=== PATIENT | male | born 1965 | race Caucasian/White ===

== ENCOUNTER 2019-07-18 08:40 | Outpatient (CLI) | payer MEDICARE, SELFPAY ==
[2019-07-18 09:01] LABS: Hemoglobin 14.8 g/dL (14.0-18.0); Mean Corpuscular HGB Conc 32.2 g/dL (32.0-36.0); Mean Corpuscular Hemoglobin 31.8 pg (27.0-31.0); Mean Corpuscular Volume 98.9 fL (78.0-102.0); Mean Platelet Volume 10.2 fl (8.7-11.0); Platelet Count Result 400 K/mm3 (150-420); Red Blood Count 4.65 M/mm3 (4.70-6.10); Red Cell Distribution Width 14.5 % (11.6-14.4); White Blood Count 11.5 K/mm3 (4.8-10.8)
[2019-07-18 09:46] LABS: Albumin Level 3.6 g/dL (3.4-5.0); Anion Gap 14.5 mmol/L (7-16); Blood Urea Nitrogen 25 mg/dL (7-18); Calcium 9.9 mg/dL (8.5-10.1); Carbon Dioxide 28 mmol/L (21-32); Chloride 108 mmol/L (98-108); Estimated Glomerular Filt Rate 44; Glucose 87 mg/dL (70-99); Osmolality Calculated 305 mOsm/kg (285-295); Phosphorus 4.3 mg/dL (2.6-4.7); Potassium 4.5 mmol/L (3.5-5.1); Sodium 146 mmol/L (136-145)
[2019-07-22 12:06] LABS: Tacrolimus Prograf 3.6 mcg/L
== END 2019-07-18 08:41 | disposition home or self-care (01) ==
DX: Z94.0 Kidney transplant status (principal); E78.49 Other hyperlipidemia
CPT/HCPCS: 36415; 80069; 80197; 85027

== ENCOUNTER 2019-11-05 08:37 | Outpatient (CLI) | payer MEDICARE, SELFPAY ==
[2019-11-05 08:52] LABS: Basophils Absolute Auto 0.07 K/mm3 (0.00-0.10); Basophils Percent Auto 0.8 % (0.0-1.0); Eosinophils Absolute Auto 0.22 K/mm3 (0.02-0.50); Eosinophils Percent Auto 2.4 % (1.0-6.0); Hematocrit 47.7 % (40.0-54.0); Hemoglobin 15.5 g/dL (14.0-18.0); Immature Granulocyte Absolute 0.03 K/mm3 (0.00-0.00); Immature Granulocyte Percent A 0.3 % (0.0-0.0); Lymphocytes Absolute Auto 3.01 K/mm3 (1.10-4.50); Lymphocytes Percent Auto 32.6 % (18.0-42.0); Mean Corpuscular HGB Conc 32.5 g/dL (32.0-36.0); Mean Corpuscular Hemoglobin 31.8 pg (27.0-31.0); Mean Corpuscular Volume 97.7 fL (78.0-102.0); Mean Platelet Volume 10.2 fl (8.7-11.0); Monocytes Absolute Auto 1.23 K/mm3 (0.10-0.90); Monocytes Percent Auto 13.3 % (2.0-11.0); Neutrophils Absolute Auto 4.7 K/mm3 (1.7-7.2); Neutrophils Percent Auto 50.6 % (50.0-70.0); Platelet Count Result 361 K/mm3 (150-420); Red Blood Count 4.88 M/mm3 (4.70-6.10); Red Cell Distribution Width 13.7 % (11.6-14.4); White Blood Count 9.2 K/mm3 (4.8-10.8)
[2019-11-05 09:06] LABS: Hemoglobin A1C 5.6 % (<5.7)
[2019-11-05 09:45] LABS: Alanine Aminotransferase 15 U/L (16-63); Albumin Level 3.7 g/dL (3.4-5.0); Alkaline Phosphatase 82 U/L (46-116); Anion Gap 14.3 mmol/L (7-16); Aspartate Amino Transferase 8 U/L (15-37); Bilirubin,Total 0.4 mg/dL (0.00-1.00); Blood Urea Nitrogen 30 mg/dL (7-18); Calcium 9.6 mg/dL (8.5-10.1); Carbon Dioxide 24 mmol/L (21-32); Chloride 110 mmol/L (98-108); Cholesterol 137 mg/dL (0-200); Estimated Glomerular Filt Rate 38; Glucose 89 mg/dL (70-99); HDL Direct 37 mg/dL (40-60); LDL Cholesterol Calculated 77 mg/dL (<130); Osmolality Calculated 303 mOsm/kg (285-295); Phosphorus 3.5 mg/dL (2.6-4.7); Potassium 4.3 mmol/L (3.5-5.1); Sodium 144 mmol/L (136-145); Total Protein 7.5 g/dL (6.4-8.2); Triglycerides 115 mg/dL (0-150)
[2019-11-10 05:33] LABS: Tacrolimus Prograf 3.6 mcg/L
== END 2019-11-05 08:38 | disposition home or self-care (01) ==
DX: Z94.0 Kidney transplant status (principal); E78.49 Other hyperlipidemia; Z79.899 Other long term (current) drug therapy
CPT/HCPCS: 36415; 80053; 80061; 80197; 83036; 84100; 85025

== ENCOUNTER 2020-08-11 09:02 | Outpatient (CLI) | payer MEDICARE, SELFPAY ==
[2020-08-11 09:21] LABS: Basophils Percent Auto 1.1 % (0.0-1.0); Eosinophils Absolute Auto 0.34 K/mm3 (0.02-0.50); Eosinophils Percent Auto 3.6 % (1.0-6.0); Hematocrit 45.9 % (40.0-54.0); Hemoglobin 14.9 g/dL (14.0-18.0); Immature Granulocyte Absolute 0.03 K/mm3 (0.00-0.00); Immature Granulocyte Percent A 0.3 % (0.0-0.0); Lymphocytes Absolute Auto 2.71 K/mm3 (1.10-4.50); Mean Corpuscular HGB Conc 32.5 g/dL (32.0-36.0); Mean Corpuscular Hemoglobin 32.2 pg (27.0-31.0); Mean Corpuscular Volume 99.1 fL (78.0-102.0); Mean Platelet Volume 10.4 fl (8.7-11.0); Monocytes Absolute Auto 1.32 K/mm3 (0.10-0.90); Monocytes Percent Auto 14.1 % (2.0-11.0); Neutrophils Absolute Auto 4.8 K/mm3 (1.7-7.2); Neutrophils Percent Auto 51.9 % (50.0-70.0); Platelet Count Result 327 K/mm3 (150-420); Red Blood Count 4.63 M/mm3 (4.70-6.10); Red Cell Distribution Width 13.2 % (11.6-14.4); White Blood Count 9.3 K/mm3 (4.8-10.8)
[2020-08-11 09:39] LABS: Prothrombin Time 11.1 Seconds (9.50-12.10)
[2020-08-11 10:08] LABS: Hemoglobin A1C 5.2 % (<5.7)
[2020-08-11 10:17] LABS: Alanine Aminotransferase 21 U/L (16-63); Albumin Level 3.9 g/dL (3.4-5.0); Alkaline Phosphatase 68 U/L (46-116); Anion Gap 9 mmol/L (8-16); Aspartate Amino Transferase 10 U/L (15-37); Bilirubin,Total 0.9 mg/dL (0.00-1.00); Blood Urea Nitrogen 26 mg/dL (7-18); Calcium 9.7 mg/dL (8.5-10.1); Carbon Dioxide 26 mmol/L (21-32); Chloride 106 mmol/L (98-108); Cholesterol 121 mg/dL (0-200); Estimated Glomerular Filt Rate 39; Glucose 91 mg/dL (70-99); HDL Direct 37 mg/dL (40-60); LDL Cholesterol Calculated 64 mg/dL (<130); Osmolality Calculated 296 mOsm/kg (285-295); Phosphorus 2.8 mg/dL (2.6-4.7); Potassium 4.1 mmol/L (3.5-5.1); Sodium 141 mmol/L (136-145); Total Protein 7.4 g/dL (6.4-8.2); Triglycerides 99 mg/dL (0-150)
[2020-08-13 16:27] LABS: Tacrolimus Prograf 2.9 mcg/L
== END 2020-08-11 09:03 | disposition home or self-care (01) ==
LOC: CHSLAB 09:08
PROVIDERS: PCP Internal Medicine; Visit Provider Internal Medicine
DX: Z94.0 Kidney transplant status (principal); E78.5 Hyperlipidemia, unspecified; N39.0 Urinary tract infection, site not specified; Z79.899 Other long term (current) drug therapy; Z79.01 Long term (current) use of anticoagulants
CPT/HCPCS: 36415; 80053; 80061; 80197; 83036; 84100; 85025; 85610

== ENCOUNTER 2021-03-10 09:34 | Outpatient (RCR) | payer MEDICARE, SELFPAY ==
[2021-03-10 10:01] LABS: Basophils Absolute Auto 0.04 K/mm3 (0.00-0.10); Basophils Percent Auto 0.3 % (0.0-1.0); Eosinophils Absolute Auto 0.13 K/mm3 (0.02-0.50); Eosinophils Percent Auto 1.1 % (1.0-6.0); Hematocrit 51.3 % (40.0-54.0); Hemoglobin 16.7 g/dL (14.0-18.0); Immature Granulocyte Absolute 0.03 K/mm3 (0.00-0.00); Immature Granulocyte Percent A 0.2 % (0.0-0.0); Lymphocytes Absolute Auto 3.46 K/mm3 (1.10-4.50); Lymphocytes Percent Auto 28.8 % (18.0-42.0); Mean Corpuscular HGB Conc 32.6 g/dL (32.0-36.0); Mean Corpuscular Hemoglobin 30.7 pg (27.0-31.0); Mean Corpuscular Volume 94.3 fL (78.0-102.0); Mean Platelet Volume 11.1 fl (8.7-11.0); Monocytes Absolute Auto 1.67 K/mm3 (0.10-0.90); Monocytes Percent Auto 13.9 % (2.0-11.0); Neutrophils Absolute Auto 6.7 K/mm3 (1.7-7.2); Neutrophils Percent Auto 55.7 % (50.0-70.0); Platelet Count Result 319 K/mm3 (150-420); Red Blood Count 5.44 M/mm3 (4.70-6.10); Red Cell Distribution Width 14.6 % (11.6-14.4)
[2021-03-10 10:08] LABS: INR 1.1; Prothrombin Time 11.4 Seconds (9.50-12.10)
[2021-03-10 10:24] LABS: Alanine Aminotransferase 22 U/L (16-63); Alkaline Phosphatase 89 U/L (46-116); Anion Gap 12 mmol/L (8-16); Aspartate Amino Transferase 16 U/L (15-37); Bilirubin,Total 0.6 mg/dL (0.00-1.00); Blood Urea Nitrogen 33 mg/dL (7-18); Calcium 9.7 mg/dL (8.5-10.1); Carbon Dioxide 22 mmol/L (21-32); Chloride 109 mmol/L (98-108); Cholesterol 123 mg/dL (0-200); Estimated Glomerular Filt Rate 41; Glucose 98 mg/dL (70-99); HDL Direct 38 mg/dL (40-60); LDL Cholesterol Calculated 57 mg/dL (<130); Osmolality Calculated 303 mOsm/kg (285-295); Phosphorus 3.5 mg/dL (2.6-4.7); Potassium 4.5 mmol/L (3.5-5.1); Sodium 143 mmol/L (136-145); Triglycerides 140 mg/dL (0-150)
[2021-03-13 06:05] LABS: Tacrolimus Prograf 3.3 mcg/L
== END 2021-06-08 23:59 | disposition home or self-care (01) ==
LOC: CHSLAB 09:34
PROVIDERS: Visit Provider Internal Medicine
DX: Z94.0 Kidney transplant status (principal); E78.5 Hyperlipidemia, unspecified; N39.0 Urinary tract infection, site not specified; Z79.01 Long term (current) use of anticoagulants; Z79.899 Other long term (current) drug therapy
CPT/HCPCS: 36415; 80053; 80061; 80069; 80197; 84100; 85025; 85610

== ENCOUNTER 2021-09-12 08:24 | Outpatient (RCR) | payer MEDICARE, SELFPAY ==
[2021-07-05 09:37] LABS: Basophils Absolute Auto 0.03 K/mm3 (0.00-0.10); Basophils Percent Auto 0.3 % (0.0-1.0); Eosinophils Absolute Auto 0.14 K/mm3 (0.02-0.50); Eosinophils Percent Auto 1.5 % (1.0-6.0); Hematocrit 48.7 % (40.0-54.0); Hemoglobin 15.5 g/dL (14.0-18.0); Immature Granulocyte Absolute 0.02 K/mm3 (0.00-0.00); Immature Granulocyte Percent A 0.2 % (0.0-0.0); Lymphocytes Absolute Auto 3.05 K/mm3 (1.10-4.50); Lymphocytes Percent Auto 32.4 % (18.0-42.0); Mean Corpuscular HGB Conc 31.8 g/dL (32.0-36.0); Mean Corpuscular Hemoglobin 31.3 pg (27.0-31.0); Mean Corpuscular Volume 98.2 fL (78.0-102.0); Monocytes Absolute Auto 1.41 K/mm3 (0.10-0.90); Neutrophils Absolute Auto 4.8 K/mm3 (1.7-7.2); Neutrophils Percent Auto 50.6 % (50.0-70.0); Platelet Count Result 309 K/mm3 (150-420); Red Blood Count 4.96 M/mm3 (4.70-6.10); Red Cell Distribution Width 13.6 % (11.6-14.4); White Blood Count 9.4 K/mm3 (4.8-10.8)
[2021-07-05 10:26] LABS: Alanine Aminotransferase 24 U/L (16-63); Albumin Level 3.7 g/dL (3.4-5.0); Alkaline Phosphatase 76 U/L (46-116); Anion Gap 8 mmol/L (8-16); Aspartate Amino Transferase 12 U/L (15-37); Bilirubin Direct 0.1 mg/dL (0-0.2); Bilirubin,Total 0.5 mg/dL (0.00-1.00); Blood Urea Nitrogen 26 mg/dL (7-18); Calcium 9.6 mg/dL (8.5-10.1); Carbon Dioxide 29 mmol/L (21-32); Chloride 108 mmol/L (98-108); Cholesterol 140 mg/dL (0-200); Estimated Glomerular Filt Rate 42; Glucose 98 mg/dL (70-99); HDL Direct 42 mg/dL (40-60); LDL Cholesterol Calculated 80 mg/dL (<130); Osmolality Calculated 304 mOsm/kg (285-295); Phosphorus 3.4 mg/dL (2.6-4.7); Potassium 4.4 mmol/L (3.5-5.1); Sodium 145 mmol/L (136-145); Total Protein 7.5 g/dL (6.4-8.2); Triglycerides 90 mg/dL (0-150)
[2021-07-07 19:51] LABS: Tacrolimus Prograf 2.1 mcg/L
[2021-09-12 08:40] LABS: Basophils Absolute Auto 0.06 K/mm3 (0.00-0.10); Basophils Percent Auto 0.6 % (0.0-1.0); Eosinophils Absolute Auto 0.32 K/mm3 (0.02-0.50); Eosinophils Percent Auto 3.1 % (1.0-6.0); Hematocrit 47.4 % (40.0-54.0); Hemoglobin 15.4 g/dL (14.0-18.0); Immature Granulocyte Absolute 0.04 K/mm3 (0.00-0.00); Immature Granulocyte Percent A 0.4 % (0.0-0.0); Lymphocytes Absolute Auto 4.54 K/mm3 (1.10-4.50); Lymphocytes Percent Auto 43.6 % (18.0-42.0); Mean Corpuscular HGB Conc 32.5 g/dL (32.0-36.0); Mean Corpuscular Hemoglobin 31.9 pg (27.0-31.0); Mean Corpuscular Volume 98.1 fL (78.0-102.0); Mean Platelet Volume 10.9 fl (8.7-11.0); Monocytes Absolute Auto 1.43 K/mm3 (0.10-0.90); Monocytes Percent Auto 13.7 % (2.0-11.0); Neutrophils Percent Auto 38.6 % (50.0-70.0); Platelet Count Result 270 K/mm3 (150-420); Red Blood Count 4.83 M/mm3 (4.70-6.10); White Blood Count 10.4 K/mm3 (4.8-10.8)
[2021-09-12 08:55] LABS: Alanine Aminotransferase 21 U/L (16-63); Albumin Level 3.7 g/dL (3.4-5.0); Alkaline Phosphatase 89 U/L (46-116); Anion Gap 9 mmol/L (8-16); Aspartate Amino Transferase 16 U/L (15-37); Bilirubin Direct 0.1 mg/dL (0-0.2); Bilirubin,Total 0.4 mg/dL (0.00-1.00); Blood Urea Nitrogen 31 mg/dL (7-18); Calcium 9.1 mg/dL (8.5-10.1); Carbon Dioxide 25 mmol/L (21-32); Chloride 107 mmol/L (98-108); Cholesterol 119 mg/dL (0-200); Estimated Glomerular Filt Rate 41; Glucose 95 mg/dL (70-99); HDL Direct 45 mg/dL (40-60); LDL Cholesterol Calculated 60 mg/dL (<130); Osmolality Calculated 298 mOsm/kg (285-295); Potassium 3.9 mmol/L (3.5-5.1); Sodium 141 mmol/L (136-145); Total Protein 7.7 g/dL (6.4-8.2); Triglycerides 68 mg/dL (0-150)
[2021-09-14 06:51] LABS: Tacrolimus Prograf 2.5 mcg/L
== END 2021-10-03 23:59 | disposition home or self-care (01) ==
LOC: CHSLAB 08:24
PROVIDERS: PCP Internal Medicine; Visit Provider Internal Medicine Nephrology
DX: Z94.0 Kidney transplant status (principal); E78.2 Mixed hyperlipidemia; Z79.899 Other long term (current) drug therapy
CPT/HCPCS: 36415; 80053; 80061; 80069; 80076; 80197; 82248; 85025

== ENCOUNTER 2022-03-27 09:51 | Outpatient (CLI) | payer MEDICARE, SELFPAY ==
[2022-03-27 10:11] LABS: Basophils Absolute Auto 0.06 K/mm3 (0.00-0.10); Basophils Percent Auto 0.7 % (0.0-1.0); Eosinophils Absolute Auto 0.32 K/mm3 (0.02-0.50); Eosinophils Percent Auto 3.5 % (1.0-6.0); Hematocrit 48.5 % (40.0-54.0); Hemoglobin 15.3 g/dL (14.0-18.0); Immature Granulocyte Absolute 0.05 K/mm3 (0.00-0.00); Immature Granulocyte Percent A 0.5 % (0.0-0.0); Lymphocytes Absolute Auto 3.11 K/mm3 (1.10-4.50); Lymphocytes Percent Auto 33.8 % (18.0-42.0); Mean Corpuscular HGB Conc 31.5 g/dL (32.0-36.0); Mean Corpuscular Hemoglobin 31.7 pg (27.0-31.0); Mean Corpuscular Volume 100.4 fL (78.0-102.0); Mean Platelet Volume 9.9 fl (8.7-11.0); Monocytes Absolute Auto 1.33 K/mm3 (0.10-0.90); Monocytes Percent Auto 14.5 % (2.0-11.0); Neutrophils Absolute Auto 4.3 K/mm3 (1.7-7.2); Platelet Count Result 342 K/mm3 (150-420); Red Blood Count 4.83 M/mm3 (4.70-6.10); Red Cell Distribution Width 13.2 % (11.6-14.4); White Blood Count 9.2 K/mm3 (4.8-10.8)
[2022-03-27 10:45] LABS: Alanine Aminotransferase 24 U/L (16-63); Albumin Level 3.8 g/dL (3.4-5.0); Alkaline Phosphatase 72 U/L (46-116); Anion Gap 8 mmol/L (8-16); Aspartate Amino Transferase 12 U/L (15-37); Bilirubin Direct 0.1 mg/dL (0-0.2); Bilirubin,Total 0.6 mg/dL (0.00-1.00); Blood Urea Nitrogen 32 mg/dL (7-18); Calcium 9.4 mg/dL (8.5-10.1); Carbon Dioxide 27 mmol/L (21-32); Chloride 110 mmol/L (98-108); Cholesterol 229 mg/dL (0-200); Estimated Glomerular Filt Rate 36; Glucose 98 mg/dL (70-99); HDL Direct 42 mg/dL (40-60); LDL Cholesterol Calculated 157 mg/dL (<130); Osmolality Calculated 306 mOsm/kg (285-295); Phosphorus 3.3 mg/dL (2.6-4.7); Potassium 4.8 mmol/L (3.5-5.1); Sodium 145 mmol/L (136-145); Total Protein 7.6 g/dL (6.4-8.2); Triglycerides 148 mg/dL (0-150)
[2022-03-30 13:12] LABS: Tacrolimus Prograf 1.8 mcg/L
== END 2022-03-27 09:52 | disposition home or self-care (01) ==
PROVIDERS: PCP Internal Medicine
DX: Z79.899 Other long term (current) drug therapy (principal); Z94.0 Kidney transplant status; E78.2 Mixed hyperlipidemia
CPT/HCPCS: 36415; 80061; 80069; 80076; 80197; 83036; 85025

== ENCOUNTER 2022-04-03 09:11 | Outpatient (RCR) | payer MEDICARE, SELFPAY ==
[2022-01-13 09:27] LABS: Hematocrit 45.9 % (40.0-54.0); Hemoglobin 14.6 g/dL (14.0-18.0); Mean Corpuscular HGB Conc 31.8 g/dL (32.0-36.0); Mean Corpuscular Hemoglobin 32.6 pg (27.0-31.0); Mean Corpuscular Volume 102.5 fL (78.0-102.0); Mean Platelet Volume 10.4 fl (8.7-11.0); Platelet Count Result 312 K/mm3 (150-420); Red Blood Count 4.48 M/mm3 (4.70-6.10); Red Cell Distribution Width 13.7 % (11.6-14.4); White Blood Count 9.9 K/mm3 (4.8-10.8)
[2022-01-13 09:45] LABS: Albumin Level 3.5 g/dL (3.4-5.0); Anion Gap 6 mmol/L (8-16); Blood Urea Nitrogen 21 mg/dL (7-18); Carbon Dioxide 29 mmol/L (21-32); Chloride 106 mmol/L (98-108); Estimated Glomerular Filt Rate 40; Glucose 99 mg/dL (70-99); Osmolality Calculated 295 mOsm/kg (285-295); Phosphorus 2.8 mg/dL (2.6-4.7); Potassium 4.3 mmol/L (3.5-5.1); Sodium 141 mmol/L (136-145)
[2022-01-13 09:56] LABS: Band Neutrophils Percent 0 % (0-6); Basophils Absolute Manual 0.09 K/mm3 (0-0.1); Basophils Percent Manual 1 % (0-1); Eosinophils Absolute Manual 0.29 K/mm3 (0.02-0.5); Eosinophils Percent Manual 3 % (1-6); Lymphocytes Absolute Manual 3.16 K/mm3 (1.1-4.5); Lymphocytes Percent Manual 32 % (18-44); Monocytes Absolute Manual 1.88 K/mm3 (0.1-0.90); Monocytes Percent Manual 19 % (3-9); Neutrophils Absolute Manual 4.45 K/mm3 (1.3-6.7); Neutrophils Percent Manual 45 % (46-73); Platelet Estimate Adequate (Adequate); Total Cells Counted 100
[2022-01-17 08:02] LABS: Tacrolimus Prograf 2.8 mcg/L
[2022-04-03 09:22] LABS: Basophils Absolute Auto 0.08 K/mm3 (0.00-0.10); Basophils Percent Auto 0.5 % (0.0-1.0); Hematocrit 47.7 % (40.0-54.0); Hemoglobin 15.3 g/dL (14.0-18.0); Immature Granulocyte Absolute 0.07 K/mm3 (0.00-0.00); Immature Granulocyte Percent A 0.5 % (0.0-0.0); Lymphocytes Absolute Auto 2.68 K/mm3 (1.10-4.50); Mean Corpuscular HGB Conc 32.1 g/dL (32.0-36.0); Mean Corpuscular Hemoglobin 32.4 pg (27.0-31.0); Mean Corpuscular Volume 101.1 fL (78.0-102.0); Mean Platelet Volume 10.1 fl (8.7-11.0); Monocytes Absolute Auto 1.62 K/mm3 (0.10-0.90); Monocytes Percent Auto 10.9 % (2.0-11.0); Neutrophils Absolute Auto 10.2 K/mm3 (1.7-7.2); Neutrophils Percent Auto 68.1 % (50.0-70.0); Platelet Count Result 326 K/mm3 (150-420); Red Blood Count 4.72 M/mm3 (4.70-6.10); Red Cell Distribution Width 13.2 % (11.6-14.4); White Blood Count 14.9 K/mm3 (4.8-10.8)
[2022-04-03 11:00] LABS: Alanine Aminotransferase 17 U/L (16-63); Albumin Level 3.8 g/dL (3.4-5.0); Alkaline Phosphatase 79 U/L (46-116); Anion Gap 9 mmol/L (8-16); Aspartate Amino Transferase 13 U/L (15-37); Bilirubin Direct 0.1 mg/dL (0-0.2); Bilirubin,Total 0.5 mg/dL (0.00-1.00); Blood Urea Nitrogen 25 mg/dL (7-18); Calcium 9.4 mg/dL (8.5-10.1); Carbon Dioxide 28 mmol/L (21-32); Chloride 109 mmol/L (98-108); Cholesterol 216 mg/dL (0-200); Estimated Glomerular Filt Rate 42; Glucose 93 mg/dL (70-99); HDL Direct 39 mg/dL (40-60); LDL Cholesterol Calculated 148 mg/dL (<130); Osmolality Calculated 306 mOsm/kg (285-295); Phosphorus 2.8 mg/dL (2.6-4.7); Potassium 4.4 mmol/L (3.5-5.1); Sodium 146 mmol/L (136-145); Total Protein 7.5 g/dL (6.4-8.2); Triglycerides 147 mg/dL (0-150)
[2022-04-05 16:02] LABS: Tacrolimus Prograf 2.6 mcg/L
== END 2022-04-13 23:59 | disposition home or self-care (01) ==
LOC: CHSLAB 09:11
PROVIDERS: PCP Internal Medicine; Visit Provider Internal Medicine Nephrology
DX: Z94.0 Kidney transplant status (principal); Z79.899 Other long term (current) drug therapy; E78.2 Mixed hyperlipidemia
CPT/HCPCS: 36415; 80061; 80069; 80076; 80197; 85025

== ENCOUNTER 2022-10-09 08:44 | Outpatient (RCR) | payer MEDICARE, SELFPAY ==
[2022-10-09 08:58] LABS: Basophils Absolute Auto 0.06 K/mm3 (0.00-0.10); Basophils Percent Auto 0.4 % (0.0-1.0); Eosinophils Absolute Auto 0.36 K/mm3 (0.02-0.50); Eosinophils Percent Auto 2.5 % (1.0-6.0); Hematocrit 47.4 % (40.0-54.0); Hemoglobin 15.3 g/dL (14.0-18.0); Immature Granulocyte Absolute 0.07 K/mm3 (0.00-0.00); Immature Granulocyte Percent A 0.5 % (0.0-0.0); Lymphocytes Absolute Auto 2.27 K/mm3 (1.10-4.50); Lymphocytes Percent Auto 15.6 % (18.0-42.0); Mean Corpuscular HGB Conc 32.3 g/dL (32.0-36.0); Mean Corpuscular Hemoglobin 31.9 pg (27.0-31.0); Mean Corpuscular Volume 98.8 fL (78.0-102.0); Mean Platelet Volume 10.2 fl (8.7-11.0); Monocytes Absolute Auto 1.93 K/mm3 (0.10-0.90); Monocytes Percent Auto 13.3 % (2.0-11.0); Neutrophils Absolute Auto 9.8 K/mm3 (1.7-7.2); Neutrophils Percent Auto 67.7 % (50.0-70.0); Platelet Count Result 343 K/mm3 (150-420); Red Cell Distribution Width 13.5 % (11.6-14.4); White Blood Count 14.5 K/mm3 (4.8-10.8)
[2022-10-09 09:38] LABS: Albumin Level 3.7 g/dL (3.4-5.0); Anion Gap 11 mmol/L (8-16); Blood Urea Nitrogen 25 mg/dL (7-18); Calcium 9.3 mg/dL (8.5-10.1); Carbon Dioxide 27 mmol/L (21-32); Chloride 107 mmol/L (98-108); Estimated Glomerular Filt Rate 41; Glucose 90 mg/dL (70-99); Osmolality Calculated 304 mOsm/kg (285-295); Phosphorus 2.9 mg/dL (2.6-4.7); Potassium 3.9 mmol/L (3.5-5.1); Sodium 145 mmol/L (136-145)
[2022-10-12 07:13] LABS: Tacrolimus Prograf 3.1 mcg/L
== END 2023-01-07 23:59 | disposition home or self-care (01) ==
LOC: CHSLAB 08:44
PROVIDERS: PCP Internal Medicine; Visit Provider Internal Medicine Nephrology
DX: E78.2 Mixed hyperlipidemia (principal); Z94.0 Kidney transplant status; Z79.899 Other long term (current) drug therapy
CPT/HCPCS: 36415; 80069; 80197; 85025

== ENCOUNTER 2023-04-26 10:07 | Outpatient (RCR) | payer MEDICARE, SELFPAY ==
[2023-02-20 09:14] LABS: Basophils Absolute Auto 0.06 K/mm3 (0.00-0.10); Basophils Percent Auto 0.6 % (0.0-1.0); Eosinophils Absolute Auto 0.25 K/mm3 (0.02-0.50); Eosinophils Percent Auto 2.6 % (1.0-6.0); Hematocrit 47.8 % (40.0-54.0); Hemoglobin 15.5 g/dL (14.0-18.0); Immature Granulocyte Absolute 0.04 K/mm3 (0.00-0.00); Immature Granulocyte Percent A 0.4 % (0.0-0.0); Lymphocytes Absolute Auto 2.52 K/mm3 (1.10-4.50); Lymphocytes Percent Auto 26.4 % (18.0-42.0); Mean Corpuscular HGB Conc 32.4 g/dL (32.0-36.0); Mean Corpuscular Hemoglobin 32.2 pg (27.0-31.0); Mean Corpuscular Volume 99.4 fL (78.0-102.0); Mean Platelet Volume 10.4 fl (8.7-11.0); Monocytes Absolute Auto 1.36 K/mm3 (0.10-0.90); Monocytes Percent Auto 14.2 % (2.0-11.0); Neutrophils Absolute Auto 5.3 K/mm3 (1.7-7.2); Neutrophils Percent Auto 55.8 % (50.0-70.0); Platelet Count Result 319 K/mm3 (150-420); Red Blood Count 4.81 M/mm3 (4.70-6.10); Red Cell Distribution Width 13.6 % (11.6-14.4); White Blood Count 9.6 K/mm3 (4.8-10.8)
[2023-02-20 09:55] LABS: Alanine Aminotransferase 21 U/L (16-63); Albumin Level 3.8 g/dL (3.4-5.0); Alkaline Phosphatase 106 U/L (46-116); Anion Gap 11 mmol/L (8-16); Aspartate Amino Transferase 13 U/L (15-37); Bilirubin Direct 0.2 mg/dL (0-0.2); Bilirubin,Total 0.8 mg/dL (0.00-1.00); Blood Urea Nitrogen 21 mg/dL (7-18); Calcium 9.8 mg/dL (8.5-10.1); Carbon Dioxide 24 mmol/L (21-32); Chloride 109 mmol/L (98-108); Cholesterol 121 mg/dL (0-200); Estimated Glomerular Filt Rate 44; Glucose 95 mg/dL (70-99); HDL Direct 40 mg/dL (40-60); LDL Cholesterol Calculated 62 mg/dL (<130); Osmolality Calculated 301 mOsm/kg (285-295); Phosphorus 3.2 mg/dL (2.6-4.7); Potassium 4.2 mmol/L (3.5-5.1); Sodium 144 mmol/L (136-145); Total Protein 7.6 g/dL (6.4-8.2); Triglycerides 96 mg/dL (0-150)
[2023-02-22 15:18] LABS: Tacrolimus Prograf 4.8 mcg/L
[2023-04-26 10:17] LABS: Hematocrit 45.3 % (40.0-54.0); Hemoglobin 14.5 g/dL (14.0-18.0); Mean Corpuscular Hemoglobin 32.3 pg (27.0-31.0); Mean Corpuscular Volume 100.9 fL (78.0-102.0); Mean Platelet Volume 10.2 fl (8.7-11.0); Platelet Count Result 332 K/mm3 (150-420); Red Blood Count 4.49 M/mm3 (4.70-6.10); Red Cell Distribution Width 13.9 % (11.6-14.4); White Blood Count 11.7 K/mm3 (4.8-10.8)
[2023-04-26 10:46] LABS: Band Neutrophils Percent 0 % (0-6); Basophils Absolute Manual 0.11 K/mm3 (0-0.1); Basophils Percent Manual 1 % (0-1); Eosinophils Absolute Manual 0.35 K/mm3 (0.02-0.5); Eosinophils Percent Manual 3 % (1-6); Lymphocytes Absolute Manual 1.87 K/mm3 (1.1-4.5); Lymphocytes Percent Manual 16 % (18-44); Monocytes Absolute Manual 1.28 K/mm3 (0.1-0.90); Monocytes Percent Manual 11 % (3-9); Neutrophils Absolute Manual 8.07 K/mm3 (1.3-6.7); Neutrophils Percent Manual 69 % (46-73); Platelet Estimate Adequate (Adequate); Total Cells Counted 100
[2023-04-26 10:48] LABS: Alanine Aminotransferase 40 U/L (16-63); Albumin Level 3.7 g/dL (3.4-5.0); Alkaline Phosphatase 100 U/L (46-116); Anion Gap 6 mmol/L (8-16); Aspartate Amino Transferase 18 U/L (15-37); Bilirubin Direct 0.1 mg/dL (0-0.2); Bilirubin,Total 0.4 mg/dL (0.00-1.00); Blood Urea Nitrogen 19 mg/dL (7-18); Calcium 9.4 mg/dL (8.5-10.1); Carbon Dioxide 31 mmol/L (21-32); Chloride 105 mmol/L (98-108); Cholesterol 123 mg/dL (0-200); Estimated Glomerular Filt Rate 38; Glucose 81 mg/dL (70-99); HDL Direct 44 mg/dL (40-60); LDL Cholesterol Calculated 58 mg/dL (<130); Osmolality Calculated 295 mOsm/kg (285-295); Phosphorus 3.4 mg/dL (2.6-4.7); Potassium 4.5 mmol/L (3.5-5.1); Sodium 142 mmol/L (136-145); Total Protein 7.4 g/dL (6.4-8.2); Triglycerides 106 mg/dL (0-150)
[2023-04-28 23:25] LABS: Tacrolimus Prograf 2.8 mcg/L
== END 2023-05-21 23:59 | disposition home or self-care (01) ==
LOC: CHSLAB 10:07
PROVIDERS: PCP Internal Medicine; Visit Provider Internal Medicine Nephrology
DX: E78.5 Hyperlipidemia, unspecified (principal); Z94.0 Kidney transplant status; Z79.899 Other long term (current) drug therapy
CPT/HCPCS: 36415; 80061; 80069; 80076; 80197; 85025

== ENCOUNTER 2023-06-21 09:08 | Outpatient (RCR) | payer MEDICARE, SELFPAY ==
[2023-06-21 09:25] LABS: Basophils Absolute Auto 0.08 K/mm3 (0.00-0.10); Basophils Percent Auto 0.8 % (0.0-1.0); Eosinophils Absolute Auto 0.28 K/mm3 (0.02-0.50); Eosinophils Percent Auto 2.9 % (1.0-6.0); Hematocrit 49.3 % (40.0-54.0); Hemoglobin 15.4 g/dL (14.0-18.0); Immature Granulocyte Absolute 0.04 K/mm3 (0.00-0.00); Immature Granulocyte Percent A 0.4 % (0.0-0.0); Lymphocytes Absolute Auto 3.13 K/mm3 (1.10-4.50); Lymphocytes Percent Auto 32.4 % (18.0-42.0); Mean Corpuscular HGB Conc 31.2 g/dL (32.0-36.0); Mean Corpuscular Hemoglobin 31.3 pg (27.0-31.0); Mean Corpuscular Volume 100.2 fL (78.0-102.0); Mean Platelet Volume 9.9 fl (8.7-11.0); Monocytes Absolute Auto 1.45 K/mm3 (0.10-0.90); Neutrophils Absolute Auto 4.7 K/mm3 (1.7-7.2); Neutrophils Percent Auto 48.5 % (50.0-70.0); Platelet Count Result 377 K/mm3 (150-420); Red Blood Count 4.92 M/mm3 (4.70-6.10); Red Cell Distribution Width 13.9 % (11.6-14.4); White Blood Count 9.7 K/mm3 (4.8-10.8)
[2023-06-21 10:23] LABS: Albumin Level 3.5 g/dL (3.4-5.0); Anion Gap 8 mmol/L (8-16); Blood Urea Nitrogen 20 mg/dL (7-18); Calcium 9.1 mg/dL (8.5-10.1); Carbon Dioxide 28 mmol/L (21-32); Chloride 107 mmol/L (98-108); Estimated Glomerular Filt Rate 41; Glucose 97 mg/dL (70-99); Osmolality Calculated 298 mOsm/kg (285-295); Phosphorus 3.9 mg/dL (2.6-4.7); Sodium 143 mmol/L (136-145)
[2023-06-23 17:16] LABS: Tacrolimus Prograf 2.7 mcg/L
== END 2023-09-19 23:59 | disposition home or self-care (01) ==
LOC: CHSLAB 09:08
PROVIDERS: PCP Internal Medicine; Visit Provider Internal Medicine Nephrology
DX: Z94.0 Kidney transplant status (principal); E78.5 Hyperlipidemia, unspecified; Z79.899 Other long term (current) drug therapy
CPT/HCPCS: 36415; 80069; 80197; 85025

== ENCOUNTER 2023-10-31 08:55 | Outpatient (CLI) | payer MEDICARE, SELFPAY ==
[2023-10-31 09:10] LABS: Basophils Absolute Auto 0.08 K/mm3 (0.00-0.10); Basophils Percent Auto 0.8 % (0.0-1.0); Eosinophils Absolute Auto 0.29 K/mm3 (0.02-0.50); Eosinophils Percent Auto 2.9 % (1.0-6.0); Hematocrit 47.2 % (40.0-54.0); Hemoglobin 15.9 g/dL (14.0-18.0); Immature Granulocyte Absolute 0.06 K/mm3 (0.00-0.00); Immature Granulocyte Percent A 0.6 % (0.0-0.0); Lymphocytes Absolute Auto 3.15 K/mm3 (1.10-4.50); Lymphocytes Percent Auto 31.2 % (18.0-42.0); Mean Corpuscular HGB Conc 33.7 g/dL (32-36); Mean Corpuscular Volume 97.9 fL (78.0-102.0); Mean Platelet Volume 10.1 fl (8.7-11.0); Monocytes Absolute Auto 1.35 K/mm3 (0.10-0.90); Monocytes Percent Auto 13.4 % (2.0-11.0); Neutrophils Absolute Auto 5.16 K/mm3 (1.70-7.20); Neutrophils Percent Auto 51.1 % (50.0-70.0); Platelet Count Result 324 K/mm3 (150-420); Red Blood Count 4.82 M/mm3 (4.70-6.10); Red Cell Distribution Width 13.5 % (11.6-14.4); White Blood Count 10.1 K/mm3 (4.8-10.8)
[2023-10-31 09:24] LABS: Hemoglobin A1C 5.3 % (<5.7)
[2023-10-31 10:17] LABS: Alanine Aminotransferase 26 U/L (16-63); Albumin Level 3.7 g/dL (3.4-5.0); Alkaline Phosphatase 100 U/L (46-116); Anion Gap 9 mmol/L (4-12); Aspartate Amino Transferase 14 U/L (15-37); Bilirubin,Total 0.7 mg/dL (0.00-1.00); Blood Urea Nitrogen 17 mg/dL (7-18); Carbon Dioxide 26 mmol/L (21-32); Chloride 106 mmol/L (98-108); Estimated Glomerular Filt Rate 45; Glucose 95 mg/dL (70-99); Osmolality Calculated 293 mOsm/kg (285-295); Phosphorus 3.1 mg/dL (2.6-4.7); Potassium 4.5 mmol/L (3.5-5.1); Sodium 141 mmol/L (136-145); Thyroid Stimulating Hormone 1.72 uIU/mL (0.36-3.74); Total Protein 7.2 g/dL (6.4-8.2); Vitamin B12 309 pg/mL (193-986)
[2023-10-31 10:21] LABS: Calcium 9.5 mg/dL (8.5-10.1); Folic Acid > 20.0 ng/mL (8.6->20)
[2023-11-02 16:03] LABS: Tacrolimus Prograf 3.1 mcg/L
[2023-11-06 08:09] LABS: Vitamin D 25 Hydroxy 37 ng/mL (30-100)
== END 2023-10-31 08:56 | disposition home or self-care (01) ==
PROVIDERS: PCP Internal Medicine; Visit Provider Internal Medicine Nephrology
DX: F20.0 Paranoid schizophrenia (principal); Z94.0 Kidney transplant status; E78.5 Hyperlipidemia, unspecified; Z79.899 Other long term (current) drug therapy
CPT/HCPCS: 36415; 80053; 80197; 82306; 82607; 82746; 83036; 84100; 84443; 85025

== ENCOUNTER 2023-12-21 08:27 | Outpatient (CLI) | payer MEDICARE, SELFPAY ==
[2023-12-21 09:19] LABS: Basophils Absolute Auto 0.09 K/mm3 (0.00-0.10); Basophils Percent Auto 0.7 % (0.0-1.0); Eosinophils Absolute Auto 0.22 K/mm3 (0.02-0.50); Eosinophils Percent Auto 1.8 % (1.0-6.0); Hematocrit 47.1 % (40.0-54.0); Hemoglobin 15.4 g/dL (14.0-18.0); Immature Granulocyte Absolute 0.06 K/mm3 (0.00-0.00); Immature Granulocyte Percent A 0.5 % (0.0-0.0); Lymphocytes Absolute Auto 2.46 K/mm3 (1.10-4.50); Lymphocytes Percent Auto 19.7 % (18.0-42.0); Mean Corpuscular HGB Conc 32.7 g/dL (32-36); Mean Corpuscular Hemoglobin 31.6 pg (27.0-31.0); Mean Corpuscular Volume 96.7 fL (78.0-102.0); Mean Platelet Volume 10.9 fl (8.7-11.0); Monocytes Absolute Auto 1.86 K/mm3 (0.10-0.90); Monocytes Percent Auto 14.9 % (2.0-11.0); Neutrophils Percent Auto 62.4 % (50.0-70.0); Platelet Count Result 359 K/mm3 (150-420); Red Blood Count 4.87 M/mm3 (4.70-6.10); Red Cell Distribution Width 13.3 % (11.6-14.4); White Blood Count 12.5 K/mm3 (4.8-10.8)
[2023-12-21 10:06] LABS: Anion Gap 11 mmol/L (4-12); Blood Urea Nitrogen 27 mg/dL (7-18); Calcium 9.3 mg/dL (8.5-10.1); Carbon Dioxide 24 mmol/L (21-32); Chloride 103 mmol/L (98-108); Estimated Glomerular Filt Rate 43; Glucose 87 mg/dL (70-99); Osmolality Calculated 290 mOsm/kg (285-295); Phosphorus 3.1 mg/dL (2.6-4.7); Sodium 138 mmol/L (136-145)
[2023-12-25 12:17] LABS: Tacrolimus Prograf 3.2 mcg/L (5.0-20.0)
== END 2023-12-21 08:28 | disposition home or self-care (01) ==
PROVIDERS: PCP Internal Medicine; Visit Provider Internal Medicine Nephrology
DX: Z94.0 Kidney transplant status (principal); E78.5 Hyperlipidemia, unspecified; Z79.899 Other long term (current) drug therapy
CPT/HCPCS: 36415; 80069; 80197; 85025

== ENCOUNTER 2024-02-18 09:01 | Outpatient (RCR) | payer MEDICARE, SELFPAY ==
[2024-02-18 09:20] LABS: Basophils Absolute Auto 0.08 K/mm3 (0.00-0.10); Basophils Percent Auto 0.8 % (0.0-1.0); Eosinophils Percent Auto 3.2 % (1.0-6.0); Hematocrit 47.1 % (40.0-54.0); Hemoglobin 15.5 g/dL (14.0-18.0); Immature Granulocyte Absolute 0.04 K/mm3 (0.00-0.00); Immature Granulocyte Percent A 0.4 % (0.0-0.0); Lymphocytes Absolute Auto 2.93 K/mm3 (1.10-4.50); Lymphocytes Percent Auto 30.8 % (18.0-42.0); Mean Corpuscular HGB Conc 32.9 g/dL (32-36); Mean Corpuscular Hemoglobin 32.5 pg (27.0-31.0); Mean Corpuscular Volume 98.7 fL (78.0-102.0); Monocytes Absolute Auto 1.42 K/mm3 (0.10-0.90); Monocytes Percent Auto 14.9 % (2.0-11.0); Neutrophils Absolute Auto 4.74 K/mm3 (1.70-7.20); Neutrophils Percent Auto 49.9 % (50.0-70.0); Platelet Count Result 320 K/mm3 (150-420); Red Blood Count 4.77 M/mm3 (4.70-6.10); Red Cell Distribution Width 13.4 % (11.6-14.4); White Blood Count 9.5 K/mm3 (4.8-10.8)
[2024-02-18 10:10] LABS: Alanine Aminotransferase 19 U/L (16-63); Albumin Level 3.6 g/dL (3.4-5.0); Alkaline Phosphatase 117 U/L (46-116); Anion Gap 7 mmol/L (4-12); Aspartate Amino Transferase 11 U/L (15-37); Bilirubin Direct 0.2 mg/dL (0-0.2); Bilirubin,Total 0.7 mg/dL (0.00-1.00); Blood Urea Nitrogen 18 mg/dL (7-18); Calcium 9.3 mg/dL (8.5-10.1); Carbon Dioxide 29 mmol/L (21-32); Chloride 107 mmol/L (98-108); Cholesterol 137 mg/dL (0-200); Estimated Glomerular Filt Rate 44; Glucose 94 mg/dL (70-99); HDL Direct 45 mg/dL (40-60); LDL Cholesterol Calculated 76 mg/dL (<130); Osmolality Calculated 297 mOsm/kg (285-295); Phosphorus 3.4 mg/dL (2.6-4.7); Potassium 4.3 mmol/L (3.5-5.1); Sodium 143 mmol/L (136-145); Total Protein 7.1 g/dL (6.4-8.2); Triglycerides 78 mg/dL (0-150)
== END 2024-05-18 23:59 | disposition home or self-care (01) ==
LOC: CHSLAB 09:01
PROVIDERS: PCP Internal Medicine; Visit Provider Internal Medicine Nephrology
DX: Z51.81 Encounter for therapeutic drug level monitoring (principal); E78.5 Hyperlipidemia, unspecified; Z94.0 Kidney transplant status; Z79.899 Other long term (current) drug therapy
CPT/HCPCS: 36415; 80061; 80069; 80076; 80197; 85025

== ENCOUNTER 2024-06-13 08:40 | Outpatient (CLI) | payer MEDICARE, MEDICAID, SELFPAY ==
--- OUTSIDE RECORDS SUMMARY | 2024-06-13 08:54 | XMS_ITS | Encounter Summary ---
Author Organization [facility] Healthcare Address [address] [place] [address] Care Team Providers Care Safety And Security Manager Name Role Phone Redd Roberts MD Primary Care Provider + [phone] Angelica Sheehan RN Unavailable [phone] Encounter Details Date Type Department Care Team (Late st Contact Info) Description 06/09/2024 Orders Only [facility] Health Information Management [address] [place] [address] Scanning, Provider Social History Tobacco Use Types Packs/Day Years Used Date Smoking Tobacco: Never Smokeless Tobacco: Never Alcohol Use Standard Drinks/Week Comments No 0 (1 standard drink = 0.6 oz pur e alcohol) Sex and Gender Information Value Date Recorded Sex Assigned at Not on file Legal Sex Male 7: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 ENGINEERING DIRECTOR Gender Identity Not on file Sexual Orientation Not on file documented as of this encounter Plan of Treatment Not on file documented as of this encounter Procedures Procedure Name Priority Date/Time Associated Diagnosis Comments SCAN - LABS 06/09/2024 3:48 PM CLINICAL ENGINEERING DIRECTOR documented in this encounter Results * SCAN - LABS (06/09/2024 3:48 PM CLINICAL ENGINEERING DIRECTOR) us Provider Scanning Final Result documented in this encounter Visit Diagnoses Not on filedocumented in this encounter Care Teams Safety And Security Manager Relationship Specialty Start Date End Date Redd Roberts MD [address] [place] [address] PCP - General 08/22/16 Angelica Sheehan, RN [address] [address] Commercial Loan Collection Officer 10/09/17 documented as of this encounter
--- OUTSIDE RECORDS SUMMARY | 2024-06-13 08:54 | XMS_ITS | Referral Summary ---
Author Organization [facility] Address [facility] [place] [address] Care Team Providers Care Insurance Verification Specialist Name Role Phone Redd Roberts MD Primary Care Provider +- [phone] Angelica Sheehan RN Unavailable [phone] Encounters Date Type Department Care Team Description 06/10/2024 Telephone [facility] Transplant Kidney [address] [facility] [phone] [place] [address] Angelica Sheehan, RANDOLPH 06/09/2024 Orders Only [facility] Health Information Management [address] [place] [id number] Scanning, Provider from Last 3 Months Allergies No known active allergies Medications multivitamin tabletIndicatio ns:Vitamin Deficiency Prevention daily. 11/06/19 08 Active OLANZapine (ZyPREXA) 20 mg tabletIndicatio ns:Schizophreni a Take 1 tablet (20 mg total) by mouth nightly 3 01/21/20 18 Active omeprazole OTC (PriLOSEC OTC) 20 mg EC tablet Take 1 tablet (20 mg total) by mouth video tape duplicator before breakfast 11/06/19 08 Active acyclovir (ZOVIRAX) 200 mg capsule Take 1 capsule (200 mg total) by mouth 2 (two) times a day 180 capsule 3 07/21/19 21 Active Additional Information Patient not taking.Reported on 04/06/2022 tacrolimus 1 mg immediate-relea se capsule TAKE 1 CAPSULE BY MOUTH 2 TIMES A DAY 60 capsule 11 12/12/19 24 Active predniSONE (DELTASONE) 5 mg tabletIndicatio ns:Kidney transplanted TAKE 1 TABLET BY MOUTH EVERY DAY 90 tablet 3 01/03/20 24 Active atorvastatin (LIPITOR) 20 mg tablet TAKE 1 TABLET BY MOUTH EVERY DAY AT NIGHT 90 tablet 3 01/03/20 24 Active mycophenolate mofetil (CELLCEPT) 500 mg tablet TAKE 1 TABLET BY MOUTH TWICE DAILY 60 tablet 11 01/09/20 24 Active folic acid (FOLVITE) 1 mg tablet TAKE 1 TABLET BY MOUTH EVERY DAY IN THE EVENING 90 tablet 3 05/15/19 25 Active sulfamethoxazol e-trimethoprim (BACTRIM DS) 800-160 mg per tablet TAKE 1/2 TABLET BY MOUTH DAILY 45 tablet 05/19/19 25 Active folic acid (FOLVITE) 1 mg tablet TAKE 1 TABLET BY MOUTH EVERY DAY IN THE EVENING 90 tablet 3 01/20/20 23 025 Discontinued sulfamethoxazol e-trimethoprim (BACTRIM DS) 800-160 mg per tablet TAKE 1/2 TABLET BY MOUTH EVERY DAY 45 tablet 3 05/16/19 24 025 Discontinued Active Problems Patient Care Coordination No te Formatting of this note migh t be different from the original. --PT DOES NOT USE MYCHART-- Lab: [facility] PH: [phone]; FX: [phone] Standing Orders q-monthly FK (11-29-2024); q3-Routine (11-29-2024) Problem Noted Date Diagnosed Date Bladder stone 06/28/2018 Overview (06/28/2018): Added automatically from request for surgery [id number] Infectious warts 12/16/2015 Overview (08/17/2017): Description: LN2 x1 L thigh Immunosuppression 12/16/2015 Overview (08/17/2017): Description: Inc risk skin ca. counseled. SPF Skin neoplasm 11/18/2012 Overview (08/17/2017): Description: R/o NMSC, poro, SK. Shave bx. L thigh. RTC pend path. Keratosis, senilis 11/18/2012 Overview (08/17/2017): Description: Reassured. 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 Immunizations Name Administration Dates Next Due Influenza, Quad, Adjuvantate d, Intramuscular 03/17/2021 Influenza, Quadrivalent, Kari l Culture-based MDCK, Preservative Free, Antibiotic Free, Intramuscular 05/15/2018 Influenza, Quadrivalent, Hig h Dose, Preservative Free, Intrr 04/06/2022 Influenza, Trivalent, Preser vative Free, Intramuscular 03/01/2017,04/15/2015,02/15/2012,02/11 Social History Tobacco Use Types Packs/Day Years Used Date Smoking Tobacco: Never Smokeless Tobacco: Never Tobacco Cessation:Counseling Given: Not Answered Alcohol Use Standard Drinks/Week Comments No 0 (1 standard drink = 0.6 oz pur e alcohol) Sex and Gender Information Value Date Recorded Sex Assigned at Not on file Legal Sex Male 7:00 PM TONGUE AND QUARTER STITCHER Gender Identity Not on file Sexual Orientation Not on file Last Filed Vital Signs Vital Sign Reading Time Taken Comments Blood Pressure 139/90 02/14/2024 9:04 AM CDT Pulse 97 02/14/2024 8:41 AM CDT Temperature 36.6 C (97.9 F) 02/14/2024 8:41 AM CDT Respiratory Rate 20 07/17/2018 1:11 PM CDT Oxygen Saturation 94% 07/17/2018 3:55 PM CDT Inhaled Oxygen Concentration - - Weight 88.9 kg (196 lb) 02/14/2024 8:41 AM CDT Height 180.3 cm (5' 11 ) 02/14/2024 8:41 AM CDT Body Mass Index 27.34 02/14/2024 8:41 AM CDT Plan of Treatment Not on file Procedures Procedure Name Priority Date/Time Associated Diagnosis Comments SCAN - LABS 06/09/2024 3:48 PM TONGUE AND QUARTER STITCHER TACROLIMUS LEVEL, TROUGH Routine 06/07/2024 9:22 AM TONGUE AND QUARTER STITCHER RENAL FUNCTION PANEL Routine 06/07/2024 9:22 AM TONGUE AND QUARTER STITCHER CBC WITH AUTO DIFFERENTIAL Routine 06/07/2024 9:22 AM TONGUE AND QUARTER STITCHER from Last 3 Months Results * SCAN - LABS (06/09/2024 3:48 PM TONGUE AND QUARTER STITCHER) us Provider Scanning Final Result * (ABNORMAL) Tacrolimus level trough (06/07/2024 9:22 AM TONGUE AND QUARTER STITCHER) SCRIBED Tacrolimus, trough 3.9(A) 5.0 - 20.0 MCG/L [facility] Blood 06/07/2024 9:22 AM TONGUE AND QUARTER STITCHER Historical Provider LAB BLOOD ORDERABLES Shandra l Result [facility] * CBC with auto differential (06/07/2024 9:22 AM TONGUE AND QUARTER STITCHER) [facility] Signature SCRIBED WBC 9.3 4.8 - 10.8 k/cumm [facility] SCRIB Hemoglobin 15.8 14.0 - 18.0 g/dL [facility] SCRIB Hematocrit 49.7 40.0 - 54.0 % [facility] SCRIB Platelets 368 150 - 420 k/cumm [facility] SCRIBED Lymphocytes Abs 3.18 1.10 - 4.50 k/[facility] Blood 06/07/2024 9:22 AM TONGUE AND QUARTER STITCHER Historical Provider LAB BLOOD ORDERABLES Edit ed Result - Final [place] [address] [phone] * (ABNORMAL) Renal function panel (06/07/2024 9:22 AM TONGUE AND QUARTER STITCHER) SCRIBED Calcium 9.4 8.5 - 10.1 mg/dl [facility] SCRED Phosphorus 3.7 2.6 - 4.7 mg/dl [facility] SCRIBED Albumin 3.9 3.4 - 5.0 g/dl [facility] SCRIBED Glucose 92 70 - 99 mg/dl [facility] SCRIBED Creatinine 2.08(A) 0.70 - 1.30 mg/dl [facility] SCRED Sodium 146(A) 136 - 145 mmol/L [facility] Potassium 4.6 3.5 - 5.1 mmol/L [facility] SCRED Chloride 108 98 - 108 mmol/L [facility] Carbon Dioxide 28 21 - 32 mmol/L [facility] eGFR in NonAfrican [place] 33 >=60 ML/MIN/1.7 3M2 [facility] SCRED Urea Nitrogen (BUN) 30(A) 7 - 18 mg/dl [facility] Blood 06/07/2024 9:22 AM TONGUE AND QUARTER STITCHER us Historical Provider LAB BLOOD ORDERABLES Shandra vergara Result [address] [phone] from Last 3 Months Insurance MEDICARE MEDICARE [facility] MEDICARE Care Teams Insurance Verification Specialist Relationship Specialty Start Date End Date Redd Roberts MD [address] [place] [address] PCP - General 08/22/16 Angelica Sheehan, RN [address] [address] Advertising Project Manager 10/09/17
--- OUTSIDE RECORDS SUMMARY | 2024-06-13 08:54 | XMS_ITS ---
Author Organization [facility] Address [address] [place] [address] Care Team Providers Care Machine Packer Name Role Phone Janusz Diaz Unavailable [phone] Allergies No Known Allergies REASON FOR VISIT 1 Follow up, phq less than 5 Medications Medication SIG (Take, Route, Frequency, Duration) Notes Start Date End Date Status Tacrolimus 1 MG Oral for 30 Days Active Atorvastatin Calcium 20 MG Oral for 90 Days Active predniSONE 5 MG Oral for 90 Days Active OLANZapine 20 MG 1 tablet Oral Once a day for 90 days Active Folic Acid 1 MG TAKE 1 TABLET BY ANNIE TH EVERY DAY IN THE EVENING Oral for 90 Days Active Social History Sex Assigned At : Social History Observation Description Sex Assigned At Male Vital Signs Blood pressure systolic 134 mm Hg 03/17/20 24 Blood pressure diastolic 84 mm Hg 024 Heart Rate 101 /min 03/17/2024 Height 71.00 in 03/17/2024 Weight 197 lbs 03/17/2024 BMI 27.47 kg/m2 03/17/2024 Height-cm 180.34 cm 03/17/2024 Weight-kg 89.36 kg 03/17/2024 Encounters Encounter Location Date Provider Diagnosis [facility] [facility] [address] [place] [address] 03/17/2024 Janusz Diaz Paranoid schizophren ia F20.0 and Kidney transplant recipient Z94.0 Assessments Encounter Date Diagnosis (ICD Code) Assessment Notes Treatment Notes Treatment Clinical Notes Section Notes 03/17/2024 Paranoid schizophrenia (ICD-10 - F20.0) Paranoid Schizophrenia - Assessment: Patient reports no significant changes in symptoms or issues in the past 5 months. Denies feeling like people are going to hurt or harm him. Patient engages in conversation with the TV, but does not perceive it as problematic. Sleep and appetite are reportedly fine, though patient mentions staying up late at night. No reported side effects from current medications. - Plan: Continue current treatment with olanzapine 20 mg. No changes needed at this time. Follow-up in 5-6 months or sooner if any concerns arise. Hypertension - Assessment: Blood pressure is elevated. - Plan: Patient may need to start medication for hypertension. Recommend follow-up with primary care physician for further evaluation and management. Vitamin B12 Deficiency - Assessment: Vitamin B12 level is slightly low at 309. Patient is currently taking folic acid. - Plan: Encourage the patient to take vitamin B12 supplements or increase dietary intake of vitamin G35-sgte foods. Follow-up with primary care physician for monitoring and further evaluation if needed. Kidney Transplant History - Assessment: No reported issues or concerns related to the kidney transplant. - Plan: Continue monitoring kidney function with primary care physician as needed. Diabetes Risk - Assessment: Hemoglobin A1c is 5.3, indicating no current diagnosis of diabetes. - Plan: Continue monitoring blood sugar levels with primary care physician as part of routine care. Cholesterol and Thyroid Function - Assessment: Cholesterol and thyroid function tests were done in February. - Plan: Follow-up with primary care physician for results and management as needed. Medication Management - Plan: Medications will be sent to [facility] in [place]. No need to send a note to the patient's medical doctor at this time. 03/17/2024 Kidney transplant recipient (ICD-10 - Z94.0) Paranoid Schizophrenia - Assessment: Patient reports no significant changes in symptoms or issues in the past 5 months. Denies feeling like people are going to hurt or harm him. Patient engages in conversation with the TV, but does not perceive it as problematic. Sleep and appetite are reportedly fine, though patient mentions staying up late at night. No reported side effects from current medications. - Plan: Continue current treatment with olanzapine 20 mg. No changes needed at this time. Follow-up in 5-6 months or sooner if any concerns arise. Hypertension - Assessment: Blood pressure is elevated. - Plan: Patient may need to start medication for hypertension. Recommend follow-up with primary care physician for further evaluation and management. Vitamin B12 Deficiency - Assessment: Vitamin B12 level is slightly low at 309. Patient is currently taking folic acid. - Plan: Encourage the patient to take vitamin B12 supplements or increase dietary intake of vitamin K70-aijk foods. Follow-up with primary care physician for monitoring and further evaluation if needed. Kidney Transplant History - Assessment: No reported issues or concerns related to the kidney transplant. - Plan: Continue monitoring kidney function with primary care physician as needed. Diabetes Risk - Assessment: Hemoglobin A1c is 5.3, indicating no current diagnosis of diabetes. - Plan: Continue monitoring blood sugar levels with primary care physician as part of routine care. Cholesterol and Thyroid Function - Assessment: Cholesterol and thyroid function tests were done in February. - Plan: Follow-up with primary care physician for results and management as needed. Medication Management - Plan: Medications will be sent to [facility] in [place]. No need to send a note to the patient's medical doctor at this time. Plan Of Treatment Medication Medication Name Sig Start Date Stop Date Notes OLANZapine 20 MG 1 tablet Oral Once a day for 90 days Next Appt Details Provider Name:Janusz Diaz , 09/15/2024 08:30:00 AM, [address], [facility] [address], [place], [address], Progress Notes * JESUS EDWARDS MDOB:[birth year] (58 yo M)Acc No.[id number]:03/17/2024 Patient: Tono JESUS PATHAK Provider: Ivy DIAZ MD :1965 A ge:58 Y S ex:Male Date:03/17/2024 Address:[address] [facility] [facility] Subjective: * Chief Complaints: * 1 Follow upPhq less than 5 * HPI: D epression Screening: Chief Complaint: Overall well-being check The note is transcribed using speech recognition software. It is a reflection of a visit with the patient. It might have some inaccuracy, including medication names and transcribing errors, though efforts have been made to correct them. The patient reports doing pretty well over the last 5 months. He mentions talking to the TV while watching programs but does not consider it problematic, stating I talk to the TV but there's really nothing going on. Mental Health: The patient denies feeling that people are going to hurt or harm him. He reports no side effects from his medications. Sleep and Appetite: The patient's sleep and appetite are reportedly fine, although he stays up late at night. Physical Health: The patient denies experiencing any shakes or tremors. No significant medical events have occurred in the past 5 months, aside from slightly elevated blood pressure. Medical History: The patient has a history of kidney transplant. Lab Results: - Blood sugar is within normal limits, with a hemoglobin A1c of 5.3. - Vitamin B12 level is reported to be a little low at 309. Medications: The patient is currently taking folic acid as a supplement. Overall Assessment: The patient states that everything has been about the same and doesn't feel any changes are needed in his treatment. CASS-7 (2018 Edition) F eeling nervous, anxious, or on edge?Not at all, N ot being able to stop or control worrying N ot at all, W orrying too much about different things N ot at all, T rouble relaxing N ot at all, B eing so restless that it is hard to sit still N ot at all, B ecoming easily annoyed or irritable N ot at all, F eeling afraid as if something awful might happen N ot at all, T otal CASS-7 Score 0 , I f you checked any problems, how difficult have they made it for you to do your work, take care of things at home, or get along with other people? N ot difficult at all, I nterpretation of Total ( 0 to 4) No Anxiety. D epression screening: PHQ-9 L ittle interest or pleasure in doing things N ot at all, F eeling down, depressed, or hopeless N ot at all, T rouble falling or staying asleep, or sleeping too much N ot at all, F eeling tired or having little energy N ot at all, P oor appetite or overeating N ot at all, F eeling bad about yourself or that you are a failure, or have let yourself or your family down N ot at all, T rouble concentrating on things, such as reading the newspaper or watching television N ot at all, M oving or speaking so slowly that other people could have noticed; or the opposite, being so fidgety or restless that you have been moving around a lot more than usual N ot at all, T houghts that you would be better off or of hurting yourself in some way N ot at all, T otal Score 0 . I ntervention D epression Screening Findings N egative, S uicide Risk Assessment Performed . G eneral Follow Up: The patient had a series of medical encounters from November to February 2024. On November 12, 2023, the patient had a telephone consultation with Dr. Redd Roberts from [facility]. Later, on November 30, 2023, the patient had an encounter with Nesha Sapp at [facility] for the long-term use of high-risk medication, unspecified hyperlipidemia type, and a transplanted kidney. The patient underwent lab testing on December 26, 2023, under the supervision of Dr. Wilda Camarillo at [facility]. Lastly, on February 14, 2024, the patient visited the office for aftercare following a kidney transplant. The physician for this visit was not specified.View MoreExternal Results CBC with auto differentialPerformed on 2023-10-31, 2023-12-21, 2024-02-18. Notable findings include abnormal WBC count on 2023-12-21.COMPLETE BLOOD COUNT (CBC) WITH DIFFPerformed on 2024-02-18.FOLIC ACID (FOLATE)Performed on 2023-10-31.Hemoglobin [id number] on 2023-10-31. Result: 5.3%.HEMOGLOBIN, [id number] on 2023-10-31. Result: 5.3%.Hepatic function panelPerformed on 2023-10-31, 2024-02-19. Notable findings include abnormal Aspartate Transaminase (AST) and Alkaline Phosphatase levels on 2024-02-19.LIPID PANELPerformed on 2024-02-18.Lipid panelPerformed on 2024-02-19.Renal function panelPerformed on 2023-10-31, 2023-12-21, 2024-02-19. Notable findings include abnormal Creatinine and Urea Nitrogen (BUN) levels on 2023-12-21.RENAL FUNCTION PANEL (RFP)Performed on 2023-12-21.Tacrolimus level troughPerformed on 2023-11-02, 2023-12-25, 2024-02-19. All results were abnormal.TSHPerformed on 2023-10-31.Vitamin [id number] on 2023-10-31. Result: 309 pg/mL.Vitamin D 25 hydroxyPerformed on 2023-11-06. Result: 37 ng/mL. * Medical History: * Surgical History: O ther 12/06/2003 * Hospitalization/Major Diagno stic Procedure: * Social History: M igrated Social History: M igrated Social History: Alcohol Intake: None 07/23/2023,Tobacco Years: Never smoker 07/23/2023. * Medications: T akingAtorvastatin Calcium 20 MG Tablet Oral Tacrolimus 1 MG Capsule Oral predniSONE 5 MG Tablet Oral Folic Acid 1 MG Tablet TAKE 1 TABLET BY MOUTH EVERY DAY IN THE EVENING Oral OLANZapine 20 MG Tablet 1 tablet Oral Once a day Medication List reviewed and reconciled with the patientTaking Atorvastatin Calcium 20 MG Tablet Oral Taking Tacrolimus 1 MG Capsule Oral Taking predniSONE 5 MG Tablet Oral Taking Folic Acid 1 MG Tablet TAKE 1 TABLET BY MOUTH EVERY DAY IN THE EVENING Oral Taking OLANZapine 20 MG Tablet 1 tablet Oral Once a day Medication List reviewed and reconciled with the patient * Allergies: N .K.D.A.no[Allergies Verified] Objective: * Vitals: B P:134/84mm Hg, HR:101/min, Wt:197lbs, Wt-k.36 kg, Ht: 71.00 in, Ht-cm: 180.34 cm, BMI:27.47Index, Body Surface Area: 2.11. * Examination: G eneral Examination: M ental Status Examination: Patient denies auditory hallucinations, specifically denies hearing voices but reports talking to the television. Denies any paranoia or delusions of harm. Mood appears stable with no reported depressive or manic symptoms. Cognition seems intact with appropriate responses to questions. Patient reports staying up late at night. Vital Signs: Blood pressure noted to be elevated. Diagnostic Test Results and Labs: Hemoglobin A1c measured at 5.3 (date not specified, implied recent). Cholesterol levels checked in February 2024. Kidney function tests performed (date not specified, implied recent). Thyroid function tests performed (date not specified, implied recent). Vitamin B12 level noted to be low at 309 (date not specified, implied recent). Medical History: History of kidney transplant. Diagnosis of paranoid schizophrenia, currently stable. Medications: Currently taking folic acid. Prescribed olanzapine 20 mg. Assessment: * Assessment: 1. P aranoid schizophrenia - F20.0 (Primary) 2 . K mikelney transplant recipient - Z94.0 Paranoid Schizophrenia - Assessment: Patient reports no significant changes in symptoms or issues in the past 5 months. Denies feeling like people are going to hurt or harm him. Patient engages in conversation with the TV, but does not perceive it as problematic. Sleep and appetite are reportedly fine, though patient mentions staying up late at night. No reported side effects from current medications. - Plan: Continue current treatment with olanzapine 20 mg. No changes needed at this time. Follow-up in 5-6 months or sooner if any concerns arise. Hypertension - Assessment: Blood pressure is elevated. - Plan: Patient may need to start medication for hypertension. Recommend follow- up with primary care physician for further evaluation and management. Vitamin B12 Deficiency - Assessment: Vitamin B12 level is slightly low at 309. Patient is currently taking folic acid. - Plan: Encourage the patient to take vitamin B12 supplements or increase dietary intake of vitamin V24-vces foods. Follow-up with primary care physician for monitoring and further evaluation if needed. Kidney Transplant History - Assessment: No reported issues or concerns related to the kidney transplant. - Plan: Continue monitoring kidney function with primary care physician as needed. Diabetes Risk - Assessment: Hemoglobin A1c is 5.3, indicating no current diagnosis of diabetes. - Plan: Continue monitoring blood sugar levels with primary care physician as part of routine care. Cholesterol and Thyroid Function - Assessment: Cholesterol and thyroid function tests were done in February. - Plan: Follow-up with primary care physician for results and management as needed. Medication Management - Plan: Medications will be sent to [facility] in [place]. No need to send a note to the patient's medical doctor at this time. Plan: * Treatment: * Procedure Codes: 9 6127 BEHAV ASSMT W/SCORE & DOCD/STAND [id number] VISIT COMPLEXITY INHERENT TO ONGOING CARE RELATED TO A PATIENT'S SINGLE, SERIOUS CONDITION OR A COMPLEX CONDITION * Billing Information: * Visit Code: 31502 OFFICE OUTPATIENT VISIT 25 MINUTES DETAILED HISTORY AND EXAM/MODERATE MEDICAL DECISION MAKING. * Procedure Codes: 07138 BEHAV ASSMT W/SCORE & DOCD/STAND INSTRUMENT. G2211 VISIT COMPLEXITY INHERENT TO ONGOING CARE RELATED TO A PATIENT'S SINGLE, SERIOUS CONDITION OR A COMPLEX CONDITION. * MACY MESSENGER Sign off status: Completed true * Provider: Ivy DIAZ MD Date: 05/17/2023 Generated for Joellei ng/Jolynn/Quynhransmitting on: 0 06/13/2024 08:54 AM PHARMACY MESSENGER History and Physical Notes * HPI (History of Present Illness) Category Sub-Category Detail Notes Category Not es Depression screening PHQ-9 Little inte rest or pleasure in doing things: Not at all Feeling down, depressed, or hopeless: No t at all Trouble falling or staying asleep, or sl eeping too much: Not at all Feeling tired or having little energy: N ot at all Poor appetite or overeating: Not at all Feeling bad about yourself o r that you are a failure, or have let yourself or your family down: Not at all Trouble concentrating on thi ngs, such as reading the newspaper or watching television: Not at all Moving or speaking so slowly that other people could have noticed; or the opposite, being so fidgety or restless that you have been moving around a lot more than usual: Not at all Thoughts that you would be b segun off or of hurting yourself in some way: Not at all Total Score: 0 Intervention Depression Screening Findings: N egative Suicide Risk Assessment Performed: ____ Depression Screening CASS-7 (2018 Edition) Feelin g nervous, anxious, or on edge: Not at all Not being able to stop or control worryi ng: Not at all Worrying too much about different things : Not at all Trouble relaxing: Not at all Being so restless that it is hard to sit still: Not at all Becoming easily annoyed or irritable: No t at all Feeling afraid as if something awful deejay ht happen: Not at all Total CASS-7 Score: 0 If you checked any problems, how difficult have they made it for you to do your work, take care of things at home, or get along with other people?: Not difficult at all Interpretation of Total: (0 to 4) No Anx iety Examination Category Sub-Category Detail Notes Category Not es General Examination Mental Status Examination: Patient denies auditory hallucinations, specifically denies hearing voices but reports talking to the television. Denies any paranoia or delusions of harm. Mood appears stable with no reported depressive or manic symptoms. Cognition seems intact with appropriate responses to questions. Patient reports staying up late at night. Vital Signs: Blood pressure noted to be elevated. Diagnostic Test Results and Labs: Hemoglobin A1c measured at 5.3 (date not specified, implied recent). Cholesterol levels checked in February 2024. Kidney function tests performed (date not specified, implied recent). Thyroid function tests performed (date not specified, implied recent). Vitamin B12 level noted to be low at 309 (date not specified, implied recent). Medical History: History of kidney transplant. Diagnosis of paranoid schizophrenia, currently stable. Medications: Currently taking folic acid. Prescribed olanzapine 20 mg.
--- OUTSIDE RECORDS SUMMARY | 2024-06-13 08:54 | XMS_ITS | Clinical Summary ---
Author Organization [facility] Address [address] [place] [address] Care Team Providers Care Food Service Steward Name Role Phone Redd Roberts MD Primary Care Provider + [phone] Angelica Sheehan RN Unavailable [phone] Allergies No known active allergies Medications multivitamin tabletIndicatio ns:Vitamin Deficiency Prevention daily. 11/06/19 08 Active OLANZapine (ZyPREXA) 20 mg tabletIndicatio ns:Schizophreni a Take 1 tablet (20 mg total) by mouth nightly 3 01/21/20 18 Active omeprazole OTC (PriLOSEC OTC) 20 mg EC tablet Take 1 tablet (20 mg total) by mouth early childhood education coordinator before breakfast 11/06/19 08 Active acyclovir (ZOVIRAX) [...] 1/2 TABLET BY MOUTH DAILY 45 tablet 3 05/19/19 25 Active folic acid (FOLVITE) 1 [...] original. 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 Encounters Date Type Department Care Team Description 06/10/2024 Telephone [facility] Transplant Kidney [address] Mailstop [phone] [place] [address] Angelica Sheehan RN 06/09/2024 Orders Only [facility] Health Information Management [address] [place] [address] Scanning, Provider from Last 3 Months Immunizations Name Administration Dates Next Due Influenza, Quad, Adjuvantate d, Intramuscular 03/17/2021 Influenza, Quadrivalent, Kari l Culture-based MDCK, Preservative Free, Antibiotic Free, Intramuscular 05/15/2018 Influenza, Quadrivalent, Hig h Dose, Preservative Free, Intrr 04/06/2022 Influenza, Trivalent, Preser vative Free, Intramuscular 03/01/2017,04/15/2015,02/15/2012,02/11 Surgical History Surgery Date Site/Laterality Comments BLADDER REPAIR Repair Of Bladder Reconstruction - augmentation (Added by TW Conv) TN LITHOLAPAXY COMP/LG > 2.5 CM Cystoscopy With Fragmentation Of Bladder Calculus Over 2.5cm - 02/03/2008 (Added by TW Conv) Medical History Medical History Date Comments Encounter for aftercare foll owing other organ transplant Aftercare following organ tr ansplant - Aftercare Following Organ Transplant (Added by TW Conv) Encounter for aftercare foll owing other organ transplant Aftercare following organ tr ansplant - Aftercare Following Organ Transplant (Added by TW Conv) Chronic kidney disease Family History Medical History Relation Name Comments Hypertension Mother Family history of hypertension - (Added by TW Conv)/Family history of hypertension - (Added by TW Conv) Relation Name Status Comments Mother Social History Tobacco Use Types Packs/Day Years Used Date Smoking Tobacco: Never Smokeless Tobacco: Never Tobacco Cessation:Counseling Given: Not Answered Alcohol Use Standard Drinks/Week Comments No 0 (1 standard drink = 0.6 oz pur e alcohol) Sex and Gender Information Value Date Recorded Sex Assigned at Not on file Legal Sex Male 7:00 PM WEIGHT CLERK Gender Identity Not on file Sexual Orientation Not on file Obstetrics History Last Filed Vital Signs Vital Sign Reading [...] 02/14/2024 8:41 AM CDT Plan of Treatment Health Maintenance Due Date Last Done Comments Colon Cancer Screening-Colonoscopy 1965 Depression Screening 1965 Hepatitis C Screening 1965 Prostate Cancer Screening-PSA 1965 Pneumococcal vaccine <65 (1 of 2 - PCV) 1971 Hepatitis B Screening 1983 Regular Well Visit/Exam 18-64 1983 Zoster Vaccine (1 of 2) 1984 DTaP/Tdap/Td Vaccine (2 - Tdap) 03/15/2020 0 Influenza Vaccine (#1) 2024 2, 03/17/2021, 05/21/2018, Additional history exists Procedures Procedure Name Priority Date/Time Associated Diagnosis Comments SCAN - LABS 06/09/2024 3:48 PM WEIGHT CLERK TACROLIMUS LEVEL, TROUGH Routine 06/07/2024 9:22 AM WEIGHT CLERK RENAL FUNCTION PANEL Routine 06/07/2024 9:22 AM WEIGHT CLERK CBC WITH AUTO DIFFERENTIAL Routine 06/07/2024 9:22 AM WEIGHT CLERK from Last 3 Months Results * SCAN - LABS (06/09/2024 3:48 PM WEIGHT CLERK) us Provider Scanning Final Result * (ABNORMAL) Tacrolimus level trough (06/07/2024 9:22 AM WEIGHT CLERK) SCRIBED Tacrolimus, trough 3.9(A) 5.0 - 20.0 MCG/L [facility] Blood 06/07/2024 9:22 AM WEIGHT CLERK Historical Provider MD LAB BLOOD ORDERABLES Shandra l Result [facility] * CBC with auto differential (06/07/2024 9:22 AM WEIGHT CLERK) SCRIBED WBC 9.3 4.8 - 10.8 k/cumm [facility] Hemoglobin 15.8 14.0 - 18.0 g/dL [facility] Hematocrit 49.7 40.0 - 54.0 % [facility] Platelets 368 150 - 420 [facility] Lymphocytes Abs 3.18 1.10 - 4.50 k/[facility] Blood 06/07/2024 9:22 AM WEIGHT CLERK Historical Provider LAB BLOOD ORDERABLES Edit ed Result - Final Performing Organization Address [facility]/ZIP Co de Phone Number [address] [phone] * (ABNORMAL) Renal function panel (06/07/2024 9:22 AM WEIGHT CLERK) SCRIBED Calcium 9.4 8.5 - 10.1 mg/dl [facility] Phosphorus 3.7 2.6 - 4.7 mg/dl [facility] Albumin 3.9 3.4 - 5.0 g/dl [facility] Glucose 92 70 - 99 mg/dl [facility] Creatinine 2.08(A) 0.70 - 1.30 mg/dl [facility] Sodium 146(A) 136 - 145 mmol/L [facility] Potassium 4.6 3.5 - 5.1 mmol/L [facility] SCRIBED Chloride 108 98 - 108 mmol/L [facility] SCRIBED Carbon Dioxide 28 21 - 32 mmol/L [facility] SCRIBED eGFR in NonAfrican [place] Citizen 33 >=60 ML/MIN/1.7 3M2 [facility] SCRIBED Urea Nitrogen (BUN) 30(A) 7 - 18 mg/dl [facility] Blood 06/07/2024 9:22 AM WEIGHT CLERK us Historical Provider LAB BLOOD ORDERABLES Shandra vergara Result [place] [address] [place] [address], [facility] [phone] from Last 3 Months Insurance MEDICARE MEDICARE IDPA MEDICARE Care Teams Food Service Steward Relationship Specialty Start Date End Date Redd Roberts MD [address] [place] [address] PCP - General 08/22/16 Angelica Sheehan, R[place]OL[place] [address] [address] Night Nurse 10/09/17
--- OUTSIDE RECORDS SUMMARY | 2024-06-13 08:54 | XMS_ITS ---
Author Organization [facility] [employer] Address [address] [place] [address] [address] Care Team Providers Care Client Advocate Name Role Phone Janusz Clark Unavailable [phone] Migration, Provider Unavailable Unavailable REASON FOR VISIT EMR-Jose L Medications Medication SIG (Take, Route, Frequency, Duration) Notes Start Date End Date Status Mycophenolate Mofetil 500 MG Oral 07/23/2023 Active Folic Acid 1 MG Oral 07/23/2023 Act les predniSONE 5 MG Oral 07/23/2023 Act les Atorvastatin Calcium 20 MG Oral 07/23/2023 Active OLANZapine 20 MG Oral 07/23/2023 Ac tive TACROLIMUS 1 MG CAPSULE, IMMEDIATE-RELEASE *Reorder from [employer] for eRx and Interaction Alerts* 07/23/2023 Active Sulfamethoxazole-Trim ethoprim 800-160 MG Oral 07/23/2023 Active Social History Sex Assigned At : Social History Observation Description Sex Assigned At Male Encounters Encounter Location Date Provider Diagnosis [facility] [employer] [place] [id number] [facility] [address] [address] 09/23/2023 Provider Migration Plan Of Treatment Next Appt Details Provider Name:Janusz Clark , 09/15/2024 08:30:00 AM, [address], [facility], [place], [address], Progress Notes * JESUS EDWARDS MDOB:[birth year] (58 yo M)Acc No.[id number]:09/23/2023 Patient: JESUS SAVAGE :1965 A ge:58 Y S ex:Male Address:[facility] [address] , [place], [address] Subjective: * Chief Complaints: * E MR-Jose L * Medical History: * Surgical History: O ther 12/06/2003 * Hospitalization/Major Diagno stic Procedure: * Family History: F ather: No current problems or disability . M other: No current problems or disability .? * Social History: M igrated Social History: M igrated Social History: Alcohol Intake: None 07/23/2023,Tobacco Years: Never smoker 07/23/2023. * Medications: T akingOLANZapine 20 MG Tablet Oral Sulfamethoxazole-Trimethoprim 800-160 MG Tablet Oral Atorvastatin Calcium 20 MG Tablet Oral predniSONE 5 MG Tablet Oral Mycophenolate Mofetil 500 MG Tablet Oral Folic Acid 1 MG Tablet Oral TACROLIMUS 1 MG CAPSULE, IMMEDIATE-RELEASE , Notes to Pharmacist: *Reorder from [facility] for eRx and Interaction Alerts*Taking OLANZapine 20 MG Tablet Oral Taking Sulfamethoxazole-Trimethoprim 800-160 MG Tablet Oral Taking Atorvastatin Calcium 20 MG Tablet Oral Taking predniSONE 5 MG Tablet Oral Taking Mycophenolate Mofetil 500 MG Tablet Oral Taking Folic Acid 1 MG Tablet Oral Taking TACROLIMUS 1 MG CAPSULE, IMMEDIATE-RELEASE , Notes to Pharmacist: *Reorder from [facility] for eRx and Interaction Alerts* Objective: * Vitals: * Physical Examination: Assessment: Plan: * Treatment: * Procedure Codes: * true * Date: Generated for Ronal buitrago/Jolynn/Blanco on: 0 06/13/2024 08:54 AM ACID BATH MIXER
--- OUTSIDE RECORDS SUMMARY | 2024-06-13 08:55 | XMS_ITS | Clinical Summary ---
Author Organization [facility] Address [address] [place] [address] Phone Care Team Providers Care Credit Administration Officer Name Role Phone Unavailable Primary Care Provider Unavailabl e Allergies No known active allergies Medications Sulfamethoxazole -Trimethoprim (BACTRIM DS PO) Take by mouth daily. Active mycophenolate (CellCept) 500 MG Tablet Take 500 mg by mouth daily. Active FOLIC ACID PO Take 1,000 mg by mouth daily. Active cycloSPORINE Modified (GENGRAF PO) Take 250 mg by mouth daily. Active predniSONE (DELTASONE) 5 MG Tablet Take 5 mg by mouth daily. Active OLANZapine (ZyPREXA) 20 MG Tablet Take 20 mg by mouth daily. Active Active Problems Problem Noted Date Diagnosed Date ESRD (end stage renal disease) 04/25/2012 Immunizations Immunization Administration Dates Next Due DTAP VACCINE 03/15/2010 Influenza Vaccine greater than 3 yrs 05/21/2018 Social History Tobacco Use Types Packs/Day Years Used Date Smoking Tobacco: Never Assessed Sex and Gender Information Value Date Recorded Sex Assigned at Not on file Legal Sex Male 7:12 PM CDT Gender Identity Not on file Sexual Orientation Not on file Plan of Treatment Health Maintenance Due Date Last Done Comments Hepatitis C Virus (HCV) Screening 1965 Pneumococcal Immunization Combined (1 of 2 - PCV) 1971 Hepatitis B Immunization (1 of 3 - 19+ 3-dose series) 1984 Pneumococcal Immunization (50+ years) (1 of 2 - PCV) 1984 Zoster Immunization (1 of 2) 1984 Colonoscopy 2010 Colorectal Cancer Screening 2010 Cologuard 2015 Immunochemical Fecal Occult Blood 2015 PSA Discussion 2020 Influenza Immunization (#1) 2024 12/0 05/2021, 03/17/2021, 05/21/2018, Additional history exists SARS-COV-2 Immunization ( season) 2024 07/05/2021, 12/22/2020, 07/27/2020, Additional history exists Respiratory Syncytial Virus (RSV) Immunization (Adult) (1 - 1-dose 75+ series) 2040 DTaP/Tdap/Td Immunization Discontinued 03/15/2010 Meningococcal Immunization (ACWY) Aged Out No longer eligible based on patient's age to complete this topic Rotavirus Immunization Aged Out No lo nger eligible based on patient's age to complete this topic
--- OUTSIDE RECORDS SUMMARY | 2024-06-13 08:56 | XMS_ITS | Clinical Summary ---
Author Organization [facility] Address [address] [place] [address] Care Team Providers Care Business Travel Consultant Name Role Phone Unavailable Primary Care Provider Unavailabl e Social History Tobacco Use Types Packs/Day Years Used Date Smoking Tobacco: Never Assessed Sex and Gender Information Value Date Recorded Sex Assigned at Not on file Legal Sex Male 4:09 PM CDT Gender Identity Not on file Sexual Orientation Not on file Plan of Treatment Health Maintenance Due Date Last Done Comments Colorectal Cancer Screening Colonoscopy (10 Years) 1965 Annual Physical 1968 Hepatitis C 1983 DTaP, Tdap and Td Vaccines ( 1 - Tdap) 1984 Hepatitis B Vaccines (1 of 3 - 19+ 3-dose series) 1984 Zoster Vaccines (1 of 2) 2015 COVID-19 Vaccine (2023-2 5 season) 2024 Influenza Adult (#1) 2024 Meningococcal B Vaccine Aged Out No l onger eligible based on patient's age to complete this topic Meningococcal Vaccine Aged Out No melia dory eligible based on patient's age to complete this topic Pneumococcal Vaccine: Pediat rics (0 to 5 Years) and At-Risk Patients (6 to 64 Years) Aged Out No longer eligible b ased on patient's age to complete this topic RSV Immunizations Under 20 Months Aged Out No longer eligible based on patient's age to complete this topic
--- OUTSIDE RECORDS SUMMARY | 2024-06-13 08:56 | XMS_ITS ---
Author Organization [facility] [employer] Address [address] [place] [address] Care Team Providers Care Coat Feller Name Role Phone Janusz Diaz Unavailable [phone] REASON FOR VISIT med check, per mom pt has lost some hearing Medications Medication SIG (Take, Route, Frequency, Duration) Notes Start Date End Date Status Tacrolimus 1 MG Oral for 30 Days Active Atorvastatin Calcium 20 MG Oral for 90 Days Active predniSONE 5 MG Oral for 90 Days Active Folic Acid 1 MG TAKE 1 TABLET BY ANNIE TH EVERY DAY IN THE EVENING Oral for 90 Days Active OLANZapine 20 MG 1 tablet Oral Once a day for 90 days Active Social History Tobacco Use: Social History Observation Description Date Details (start date - stop date) Never Smoker NA - NA Sex Assigned At : Social History Observation Description Sex Assigned At Male Tobacco Control (Standard) Question Answer Notes Tobacco use: Nonsmoker AUDIT-C (Standard) Question Answer Notes Did you have a drink containing alcohol in the p ast year? No Points 0 Interpretation Negative Problems Problem Type SNOMED Code ICD Code Onset Dates Problem Status W/U Status Risk Notes Problem Paranoid schizophrenia (25318912) Paranoid schizophrenia (F20.0) Active confirmed Problem History of renal transplant (677018006) Kidney transplant recipient (Z94.0) Active confirmed Vital Signs Blood pressure systolic 112 mm Hg 10/29/19 Blood pressure diastolic 75 mm Hg 024 Heart Rate 96 /min 10/29/2023 Height 71.00 in 10/29/2023 Weight 199 lbs 10/29/2023 BMI 27.75 kg/m2 10/29/2023 Height-cm 180.34 cm 10/29/2023 Weight-kg 90.26 kg 10/29/2023 Encounters Encounter Location Date Provider Diagnosis [facility] [employer] [address] [place] [address] 10/29/2023 Janusz Diaz Paranoid schizophren ia F20.0 and Kidney transplant recipient Z94.0 Assessments Encounter Date Diagnosis (ICD Code) Assessment Notes Treatment Notes Treatment Clinical Notes Section Notes 10/29/2023 Paranoid schizophrenia (ICD-10 - F20.0) Schizophrenia - Assessment: - Patient reports no paranoia or suspiciousness. - Patient denies feeling scared or nervous. - Patient denies having thoughts about dying, , or hurting himself. - Patient's mother reports that he talks out loud to himself and hears voices, thinking they are coming from the TV. - Patient is currently on olanzapine and is compliant with medication. - Plan: - Continue olanzapine as prescribed. - Monitor patient's response to medication and any side effects. - Encourage patient's mother to consider long-term care options, such as group homes, and provide resources for starting the process (e.g., [facility] [place] and [facility]). Kidney Transplant - Assessment: - Patient is a kidney transplant recipient and has regular check-ups every 6 months. - Patient's mother will take him for blood work in the morning. - Plan: - Request a copy of the patient's blood work results to monitor kidney function and overall health. - Ensure that the patient continues to follow up with his kidney doctor as needed. Risk of Diabetes due to Olanzapine - Assessment: - Patient's mother is aware of the risk of diabetes associated with olanzapine use. - Plan: - Request that the patient's blood work includes a test for diabetes (e.g., HbA1c). - Monitor patient's blood sugar levels and adjust treatment as needed. Vitamin Levels - Assessment: - Patient's mother reports that his vitamin levels have not been checked recently. - Plan: - Order a comprehensive vitamin panel to assess the patient's vitamin levels. - Review results and recommend supplementation or dietary changes as needed. Medication Refills - Assessment: - Patient's medications are currently being filled at [facility] in [place]. - Patient's mother inquires about extending the prescription duration. - Plan: - Extend the prescription duration to 4 or 5 months, as requested by the patient's mother. - Ensure that the patient continues to take his medications as prescribed and follows up with the psychiatrist as needed. 10/29/2023 Kidney transplant recipient (ICD-10 - Z94.0) Schizophrenia - Assessment: - Patient reports no paranoia or suspiciousness. - Patient denies feeling scared or nervous. - Patient denies having thoughts about dying, , or hurting himself. - Patient's mother reports that he talks out loud to himself and hears voices, thinking they are coming from the TV. - Patient is currently on olanzapine and is compliant with medication. - Plan: - Continue olanzapine as prescribed. - Monitor patient's response to medication and any side effects. - Encourage patient's mother to consider long-term care options, such as group homes, and provide resources for starting the process (e.g., [facility] [place] and [facility]). Kidney Transplant - Assessment: - Patient is a kidney transplant recipient and has regular check-ups every 6 months. - Patient's mother will take him for blood work in the morning. - Plan: - Request a copy of the patient's blood work results to monitor kidney function and overall health. - Ensure that the patient continues to follow up with his kidney doctor as needed. Risk of Diabetes due to Olanzapine - Assessment: - Patient's mother is aware of the risk of diabetes associated with olanzapine use. - Plan: - Request that the patient's blood work includes a test for diabetes (e.g., HbA1c). - Monitor patient's blood sugar levels and adjust treatment as needed. Vitamin Levels - Assessment: - Patient's mother reports that his vitamin levels have not been checked recently. - Plan: - Order a comprehensive vitamin panel to assess the patient's vitamin levels. - Review results and recommend supplementation or dietary changes as needed. Medication Refills - Assessment: - Patient's medications are currently being filled at [facility] in [place]. - Patient's mother inquires about extending the prescription duration. - Plan: - Extend the prescription duration to 4 or 5 months, as requested by the patient's mother. - Ensure that the patient continues to take his medications as prescribed and follows up with the psychiatrist as needed. Plan Of Treatment Medication Medication Name Sig Start Date Stop Date Notes OLANZapine 20 MG 1 tablet Oral Once a day for 90 days Pending Test Test Name Order Date Vitamin B12 and Folate 10/29/2023 Hemoglobin A1c 10/29/2023 TSH 10/29/2023 Vitamin D, 25-Hydroxy 10/29/2023 CBC 10/29/2023 COMPREHENSIVE METABOLIC PANEL (49951) Next Appt Details Follow Up: 5 months, Reason: Follow up for Schizophrenia and or schizoaffective disorder Provider Name:Janusz Diaz , 09/15/2024 08:30:00 AM, [facility], [facility], [place], [address], Progress Notes * JESUS EDWARDS MDOB:[birth year] (58 yo M)Acc No.[id number]:10/29/2023 Patient: Tono JESUS PATHAK Provider: Ivy DIAZ MD :1965 A ge:58 Y S ex:Male Date:10/29/2023 Address:[address] [place] [address], [id number] Subjective: * Chief Complaints: * M ed checkPer mom pt has lost some hearing * HPI: D epression Screening: CASS-7 (2018 Edition) F eeling nervous, anxious, [...] Total ( 0 to 4) No Anxiety. H istory of Presenting Problem: The patient presents for a follow-up visit since their last appointment in July. They report no significant changes in their condition and deny experiencing any problems or bothersome symptoms. The patient spends most of their time watching TV, preferring news programs. They confirm taking olanzapine as their only prescribed medication. The patient denies experiencing paranoia, suspiciousness, fear, or nervousness. They also deny having any thoughts about dying, , or self-harm. However, the patient's mother reports that the patient talks out loud to themselves and hears voices, which they believe are coming from the TV. The voices are present almost every day and can sometimes cause the patient to argue back loudly. The patient denies any use of tobacco, alcohol, or street drugs. They are homebound, living with their mother and helping their disabled father. The patient's mother expresses concern about the patient's future living arrangements, as she is 81 years old and her is 78. The provider suggests contacting local resources to start the process of finding a halfway for the patient. The patient is compliant with their medication and has not had any issues. They are due for blood work as part of their routine kidney transplant follow-up, which is scheduled for the next day. The patient's mother is aware of the potential risk of diabetes associated with olanzapine and will provide a copy of the blood work results to the provider. external records reviewed The patient had multiple encounters with healthcare providers between August 02, 2023, and August 06, 2023. On August 02, 2023, the patient had an office visit and multiple hospital encounters, all related to a history of bladder stone and neurogenic bladder. These encounters did not specify the hospital or the attending physician. However, the office visit was with Dr. Jess Guadalupe at the [facility]. On August 06, 2023, the patient had several orders-only visits with Dr. Jess Guadalupe, again at the [facility]. The problem identified during these visits was a urinary tract infection without hematuria, site unspecified. Test Name: P OCT urinalysis dipstick Date Performed: 09:56:00 Significant Findings: - Blood, ur, POC 2+: Abnormal - Leukocytes, ur, POC 2+: Abnormal - pH, ur, POC 5.0 (Normal range: 5.0 - 8.0) - Nitrite, ur, POC: Positive, which is Abnormal Test Name: Peter garcia culture Urine, in and out catheter Date Performed: 2 024-03-30 11:41:27 Significant Findings: - Organism Identified: ESCHERICHIA COLI - Lab Interpretation: Greater than or equal to 100,000 colonies/mL of Escherichia coli, which is Abnormal. * Medical History: * Surgical History: O ther 12/06/2003 * Hospitalization/Major Diagno stic Procedure: D enies Past Hospitalization * Family History: F ather: No current problems or disability . M other: No current problems or disability .? * Social History: T obacco Use: T obacco Control (Standard) T obacco use: N onsmoker. M igrated Social History: M igrated Social History: Alcohol Intake: None 07/23/2023,Tobacco Years: Never smoker 07/23/2023. D rug/Alcohol: A RANJANA-C (Standard) D id you have a drink containing alcohol in the past year? N o,?Points 0 , I nterpretation N egative. * Medications: T akingAtorvastatin Calcium 20 MG Tablet Oral OLANZapine 20 MG Tablet Oral Tacrolimus 1 MG Capsule Oral predniSONE 5 MG Tablet Oral Folic Acid 1 MG Tablet TAKE 1 TABLET BY MOUTH EVERY DAY IN THE EVENING Oral Taking Atorvastatin Calcium 20 MG Tablet Oral Taking OLANZapine 20 MG Tablet Oral Taking Tacrolimus 1 MG Capsule Oral Taking predniSONE 5 MG Tablet Oral Taking Folic Acid 1 MG Tablet TAKE 1 TABLET BY MOUTH EVERY DAY IN THE EVENING Oral DiscontinuedOLANZapine 20 MG Tablet Oral Sulfamethoxazole-Trimethoprim 800-160 MG Tablet Oral Atorvastatin Calcium 20 MG Tablet Oral predniSONE 5 MG Tablet Oral Mycophenolate Mofetil 500 MG Tablet Oral Folic Acid 1 MG Tablet Oral TACROLIMUS 1 MG CAPSULE, IMMEDIATE-RELEASE , Notes to Pharmacist: *Reorder from [employer] for eRx and Interaction Alerts*Discontinued OLANZapine 20 MG Tablet Oral Discontinued Sulfamethoxazole-Trimethoprim 800-160 MG Tablet Oral Discontinued Atorvastatin Calcium 20 MG Tablet Oral Discontinued predniSONE 5 MG Tablet Oral Discontinued Mycophenolate Mofetil 500 MG Tablet Oral Discontinued Folic Acid 1 MG Tablet Oral Discontinued TACROLIMUS 1 MG CAPSULE, IMMEDIATE-RELEASE , Notes to Pharmacist: *Reorder from [employer] for eRx and Interaction Alerts* Objective: * Vitals: B P:sittin/75mm Hg, HR:96/min, Wt:199lbs, Wt-k.26 kg, Ht: 71.00 in, Ht- cm: 180.34 cm, BMI:27.75Index, Body Surface Area: 2.12. * Examination: P sychiatry: M ental Status Examination: Patient denies experiencing paranoia, suspiciousness, fear, or nervousness. Denies thoughts of dying, , or self-harm. Reports auditory hallucinations, hearing voices he believes are emanating from the television, occurring almost daily. Occasionally argues loudly with the voices but is not otherwise disturbed by them. Physical Examination: General: Patient is homebound, assists with care of a disabled family member. Neurological: No reported issues with compliance to prescribed medication (Olanzapine). Diagnostic Test Results: Last laboratory work was approximately 6 months ago, related to ongoing monitoring as a kidney transplant recipient. Scheduled for upcoming blood work to monitor potential side effects of Olanzapine, including risk of diabetes. Assessment: * Assessment: 1. P jackelyn schizophrenia - F20.0 (Primary) 2 . K mikelney transplant recipient - Z94.0? Schizophrenia - Assessment: - Patient reports no paranoia or suspiciousness. - Patient denies feeling scared or nervous. - Patient denies having thoughts about dying, , or hurting himself. - Patient's mother reports that he talks out loud to himself and hears voices, thinking they are coming from the TV. - Patient is currently on olanzapine and is compliant with medication. - Plan: - Continue olanzapine as prescribed. - Monitor patient's response to medication and any side effects. - Encourage patient's mother to consider long-term care options, such as group homes, and provide resources for starting the process (e.g., [facility] [place] and [facility]). Kidney Transplant - Assessment: - Patient is a kidney transplant recipient and has regular check-ups every 6 months. - Patient's mother will take him for blood work in the morning. - Plan: - Request a copy of the patient's blood work results to monitor kidney function and overall health. - Ensure that the patient continues to follow up with his kidney doctor as needed. Risk of Diabetes due to Olanzapine - Assessment: - Patient's mother is aware of the risk of diabetes associated with olanzapine use. - Plan: - Request that the patient's blood work includes a test for diabetes (e.g., HbA1c). - Monitor patient's blood sugar levels and adjust treatment as needed. Vitamin Levels - Assessment: - Patient's mother reports that his vitamin levels have not been checked recently. - Plan: - Order a comprehensive vitamin panel to assess the patient's vitamin levels. - Review results and recommend supplementation or dietary changes as needed. Medication Refills - Assessment: - Patient's medications are currently being filled at [facility] in [place]. - Patient's mother inquires about extending the prescription duration. - Plan: - Extend the prescription duration to 4 or 5 months, as requested by the patient's mother. - Ensure that the patient continues to take his medications as prescribed and follows up with the psychiatrist as needed. Plan: * Treatment: * Labs: * L ab: CBC * Procedure Codes: G 9512 Indiv pdc > 0.8 * Follow Up: 5 months (Reason: Follow up for Schizophrenia and or schizoaffective disorder) * Billing Information: * Visit Code: 90405 OFFICE OUTPATIENT VISIT 25 MINUTES DETAILED HISTORY AND EXAM/MODERATE MEDICAL DECISION MAKING. * Procedure Codes: G9512 Indiv pdc > 0.8. * Sign off status: Completed true * Provider: Ivy DIAZ MD Date: 0 10/29/2023 Generated for Ronal buitrago/Jolynn/eTransmitting on: 0 06/13/2024 08:55 AM LOSS PREVENTION AUDITOR History and Physical Notes * HPI (History of Present Illness) Category Sub-Category Detail Notes Category Not es History of Presenting Problem The patient presents for a follow-up visit since their last appointment in July. They report no significant changes in their condition and deny experiencing any problems or bothersome symptoms. The patient spends most of their time watching TV, preferring [employer] programs. They confirm taking olanzapine as their only prescribed medication. The patient denies experiencing paranoia, suspiciousness, fear, or nervousness. They also deny having any thoughts about dying, , or self-harm. However, the patient's mother reports that the patient talks out loud to themselves and hears voices, which they believe are coming from the TV. The voices are present almost every day and can sometimes cause the patient to argue back loudly. The patient denies any use of tobacco, alcohol, or street drugs. They are homebound, living with their mother and helping their disabled father. The patient's mother expresses concern about the patient's future living arrangements, as she is 81 years old and her is 78. The provider suggests contacting local resources to start the process of finding a halfway for the patient. The patient is compliant with their medication and has not had any issues. They are due for blood work as part of their routine kidney transplant follow-up, which is scheduled for the next day. The patient's mother is aware of the potential risk of diabetes associated with olanzapine and will provide a copy of the blood work results to the provider. external records reviewed The patient had multiple encounters with healthcare providers between August 02, 2023, and August 06, 2023. On August 02, 2023, the patient had an office visit and multiple hospital encounters, all related to a history of bladder stone and neurogenic bladder. These encounters did not specify the hospital or the attending physician. However, the office visit was with Dr. Jess Guadalupe at the [facility]. On August 06, 2023, the patient had several orders-only visits with Dr. Jess Guadalupe, again at the [facility]. The problem identified during these visits was a urinary tract infection without hematuria, site unspecified. Test Name: POCT urinalysis dipstick Date Performed: 2023-08-02 09:56:00 Significant Findings: - Blood, ur, POC 2+: Abnormal - Leukocytes, ur, POC 2+: Abnormal - pH, ur, POC 5.0 (Normal range: 5.0 - 8.0) - Nitrite, ur, POC: Positive, which is Abnormal Test Name: Urine culture Urine, in and out catheter Date Performed: 2023-08-04 11:41:27 Significant Findings: - Organism Identified: ESCHERICHIA COLI - Lab Interpretation: Greater than or equal to 100,000 colonies/mL of Escherichia coli, which is Abnormal Depression Screening CASS-7 (2018 Edition) Feeling nervous, anxious, or on edge: Not at [...] Category Sub-Category Detail Notes Category Not es Psychiatry Mental Status Examination: Patient denies experiencing paranoia, suspiciousness, fear, or nervousness. Denies thoughts of dying, , or self-harm. Reports auditory hallucinations, hearing voices he believes are emanating from the television, occurring almost daily. Occasionally argues loudly with the voices but is not otherwise disturbed by them. Physical Examination: General: Patient is homebound, assists with care of a disabled family member. Neurological: No reported issues with compliance to prescribed medication (Olanzapine). Diagnostic Test Results: Last laboratory work was approximately 6 months ago, related to ongoing monitoring as a kidney transplant recipient. Scheduled for upcoming blood work to monitor potential side effects of Olanzapine, including risk of diabetes.
--- OUTSIDE RECORDS SUMMARY | 2024-06-13 08:56 | XMS_ITS ---
Author Organization [facility] Address [address] [place] [address] Care Team Providers Care Human Resources Operations Manager Name Role Phone Redd Roberts MD Primary Care Provider [phone]- [phone] Angelica Sheehan RN Unavailable [phone] Transplant Episode Kidney Recipient [facility] ([place], [place]) - [facility] Organ Received: Right Kidney Transplanted on 12/19/1993 Marked as Active Follow-up on 12/19/1993 Kidney CoordinatorAngelica Sheehan RN Fax: N/A Email: N/A [place] Organ Diagnosis Organ Primary Contributory Kidney Acquired Obstructive Nephropathy Retransplant Diagnosis Organ Primary Contributory Kidney Acquired Obstructive Nephropathy Infection History Noted Survival Infection Treatment Organism Resolved 12/16/2015 21 years 11 months Infectious warts Donor Information Organ ABO Source Meets Risk Criteria HLA Match Mismatches Cross Match Right Kidney Transplanted O DBD A: B: DR: T cell (Negative) T cell (Negative) B cell (Negative) B cell (Negative) Right Kidney Donor Serology Results Anti-CMV CMV IgG: Positive EBV IgG No results on file Anti-HBcAb HBC Total: Not Done HBsAg HBsAg: Negative HBV DNA No results on file Anti-HCV HCV: Negative Anti-HIV I/II No results on file Anti-HTLV I/II HTLV: Negative RPR/VDRL RPR: Negative EBV IgM No results on file HBsAb No results on file EBNA No results on file SARS CoV-2 No results on file Care Team Name Role Phone Fax Email Angelica Sheehan RN Kidney Coordinator [phone] N/A N/A Alexandra Ollie Douglas, RN Secondary Coordinator Secondary Kidney Coordinator N/A N/A N/A Nesha Sapp Primary Staff Command And Control Officer N/A N/A N/A Angelica Sheehan RN Gas Fitter Apprentice [phone] N/A N/A Zaira Cancino Secondary Staff Command And Control Officer N/A N/A N/A Events Post-Transplant Pre-Transplant Transplanted: 12/19/1993 Referred: 05/23/1990 Discharged: 12/31/1993 Evaluation began: 05/17/1991 Center waitlisted: 3
--- OUTSIDE RECORDS SUMMARY | 2024-06-13 08:56 | XMS_ITS | Patient Health Record ---
Author Organization [facility] As [facility] Address [address] [facility] [address] [place] [address] Care Team Providers Care Sand Tester Name Role Phone Janusz Clark Unavailable [phone] Migration, Provider Unavailable Unavailable Allergies No Known Allergies Reason For Referral No Information Medications Medication SIG (Take, Route, Frequency, Duration) [...] Oral for 90 Days Active Social History Tobacco Use: Social History [...] W/U Status Risk Notes Problem Paranoid schizophrenia (15274456) Paranoid schizophrenia (F20.0) Active confirmed Problem History of renal transplant (014541004) Kidney transplant recipient (Z94.0) Active confirmed Vital Signs Heart Rate 101 /min 03/17/2024 Height-cm 180.34 cm 03/17/2024 Blood pressure diastolic 84 mm Hg 03/17/2024 Weight-kg 89.36 kg 03/17/2024 Height 71.00 in 03/17/2024 Blood pressure systolic 134 mm Hg 03/17/2024 Weight 197 lbs 03/17/2024 BMI 27.47 kg/m2 03/17/2024 Encounters Encounter Location Date Provider Diagnosis [facility] [address] [facility] [address] [facility] [address] [place] [address] 07/23/2023 Janusz Eduardo Paranoid schizophrenia F20.0 [facility] [address] [facility] [address] [place] [address] 10/29/2023 Janusz Eduardo Paranoid schizophrenia F20.0 and Kidney transplant recipient Z94.0 [facility] [address] [facility] [address] [facility] [address] [place] [address] 03/17/2024 Janusz Eduardo Paranoid schizophrenia F20.0 and Kidney transplant recipient Z94.0 [facility] [address] [facility] [address] [facility] [address] [place] [address] 08/17/2023 Provider Migration [address] [address] 09/22/2023 Provider Migration [address] [address] 09/23/2023 Provider Migration Assessments Encounter Date Diagnosis (ICD Code) Assessment [...] for starting the process (e.g., [facility] in [place] and [facility]). Kidney Transplant - Assessment: [...] Patient's medications are currently being filled at [facility] in [place]. - Patient's mother inquires about extending the [...] for starting the process (e.g., [facility] in [place] and [facility]). Kidney Transplant - Assessment: [...] Patient's medications are currently being filled at [facility] in [place]. - Patient's mother inquires about extending the prescription duration. - Plan: - Extend the prescription duration to 4 or 5 months, as requested by the patient's mother. - Ensure that the patient continues to take his medications as prescribed and follows up with the psychiatrist as needed. 03/17/2024 Paranoid schizophrenia (ICD-10 - F20.0) Paranoid [...] supplements or increase dietary intake of vitamin X11-hgtw foods. Follow-up with primary care physician for [...] - Plan: Medications will be sent to [facility] in [place]. No need to send a note to the patient's medical doctor at this time. 07/23/2023 Paranoid schizophrenia (ICD-10 - F20.0) 03/17/2024 Kidney transplant recipient (ICD-10 - Z94.0) [...] supplements or increase dietary intake of vitamin B07-gwjh foods. Follow-up with primary care physician for [...] - Plan: Medications will be sent to [facility] in [place]. No need to send a note to the patient's medical doctor at this time. Plan Of Treatment Pending Test Test Name Order Date Vitamin B12 and Folate 10/29/2023 Hemoglobin A1c 10/29/2023 TSH 10/29/2023 Vitamin D, 25-Hydroxy 10/29/2023 CBC 10/29/2023 COMPREHENSIVE METABOLIC PANEL (63412) Next Appt Details Provider Name:Janusz Clark , 09/15/2024 08:30:00 AM, [address], [facility] [address], [place], [address], Insurance Providers Payer Name Payer Address Payer Phone Subscriber Number Group Number Insured Name Patient Relationship to Insured Coverage Start Date Coverage End Date Medicare-I l Medicare [address] [place] [phone] [id number] JESUS EDWARDS Self - patient is the insured Medical (General) History Medical History History ICD Code Problems: History of renal transplant Paranoid schizophrenia , Surgical History Surgery Date(Month/Year) Other 12/06/2003
[2024-06-13 09:50] LABS: Albumin Level 3.8 g/dL (3.4-5.0); Anion Gap 10 mmol/L (4-12); Blood Urea Nitrogen 21 mg/dL (7-18); Calcium 9.5 mg/dL (8.5-10.1); Carbon Dioxide 26 mmol/L (21-32); Chloride 109 mmol/L (98-108); Estimated Glomerular Filt Rate 42; Glucose 94 mg/dL (70-99); Osmolality Calculated 303 mOsm/kg (285-295); Phosphorus 4.8 mg/dL (2.6-4.7); Potassium 4.4 mmol/L (3.5-5.1); Sodium 145 mmol/L (136-145)
== END 2024-06-13 08:41 | disposition home or self-care (01) ==
LOC: CHSLAB 08:45
PROVIDERS: PCP Internal Medicine; Visit Provider Internal Medicine Nephrology
DX: Z94.0 Kidney transplant status (principal)
CPT/HCPCS: 36415; 80069

== ENCOUNTER 2024-08-08 08:51 | Outpatient (RCR) | payer MEDICARE, SELFPAY ==
[2024-06-07 09:26] LABS: Basophils Absolute Auto 0.08 K/mm3 (0.00-0.10); Basophils Percent Auto 0.9 % (0.0-1.0); Eosinophils Absolute Auto 0.26 K/mm3 (0.02-0.50); Eosinophils Percent Auto 2.8 % (1.0-6.0); Hematocrit 49.7 % (40.0-54.0); Hemoglobin 15.8 g/dL (14.0-18.0); Immature Granulocyte Absolute 0.04 K/mm3 (0.00-0.00); Immature Granulocyte Percent A 0.4 % (0.0-0.0); Lymphocytes Absolute Auto 3.18 K/mm3 (1.10-4.50); Lymphocytes Percent Auto 34.2 % (18.0-42.0); Mean Corpuscular HGB Conc 31.8 g/dL (32-36); Mean Corpuscular Hemoglobin 31.4 pg (27.0-31.0); Mean Corpuscular Volume 98.8 fL (78.0-102.0); Mean Platelet Volume 10.3 fl (8.7-11.0); Monocytes Absolute Auto 1.36 K/mm3 (0.10-0.90); Monocytes Percent Auto 14.6 % (2.0-11.0); Neutrophils Absolute Auto 4.39 K/mm3 (1.70-7.20); Neutrophils Percent Auto 47.1 % (50.0-70.0); Platelet Count Result 368 K/mm3 (150-420); Red Blood Count 5.03 M/mm3 (4.70-6.10); Red Cell Distribution Width 13.3 % (11.6-14.4); White Blood Count 9.3 K/mm3 (4.8-10.8)
[2024-06-07 09:58] LABS: Albumin Level 3.9 g/dL (3.4-5.0); Anion Gap 10 mmol/L (4-12); Blood Urea Nitrogen 30 mg/dL (7-18); Calcium 9.4 mg/dL (8.5-10.1); Carbon Dioxide 28 mmol/L (21-32); Chloride 108 mmol/L (98-108); Estimated Glomerular Filt Rate 33; Glucose 92 mg/dL (70-99); Osmolality Calculated 308 mOsm/kg (285-295); Phosphorus 3.7 mg/dL (2.6-4.7); Potassium 4.6 mmol/L (3.5-5.1); Sodium 146 mmol/L (136-145)
[2024-06-09 15:13] LABS: Tacrolimus Prograf 3.9 mcg/L
[2024-08-08 09:11] LABS: Hematocrit 49.4 % (40.0-54.0); Hemoglobin 15.5 g/dL (14.0-18.0); Mean Corpuscular HGB Conc 31.4 g/dL (32-36); Mean Corpuscular Hemoglobin 31.3 pg (27.0-31.0); Mean Corpuscular Volume 99.6 fL (78.0-102.0); Mean Platelet Volume 10.4 fl (8.7-11.0); Platelet Count Result 325 K/mm3 (150-420); Red Blood Count 4.96 M/mm3 (4.70-6.10); Red Cell Distribution Width 13.5 % (11.6-14.4)
[2024-08-08 09:30] LABS: Alanine Aminotransferase 26 U/L (16-63); Albumin Level 3.8 g/dL (3.4-5.0); Alkaline Phosphatase 132 U/L (46-116); Anion Gap 8 mmol/L (4-12); Aspartate Amino Transferase 10 U/L (15-37); Bilirubin Direct 0.1 mg/dL (0-0.2); Bilirubin,Total 0.4 mg/dL (0.00-1.00); Blood Urea Nitrogen 24 mg/dL (7-18); Carbon Dioxide 26 mmol/L (21-32); Chloride 110 mmol/L (98-108); Cholesterol 124 mg/dL (0-200); Estimated Glomerular Filt Rate 34; Glucose 95 mg/dL (70-99); HDL Direct 41 mg/dL (40-60); LDL Cholesterol Calculated 66 mg/dL (<130); Osmolality Calculated 302 mOsm/kg (285-295); Phosphorus 3.1 mg/dL (2.6-4.7); Potassium 4.5 mmol/L (3.5-5.1); Sodium 144 mmol/L (136-145); Total Protein 7.3 g/dL (6.4-8.2); Triglycerides 83 mg/dL (0-150)
[2024-08-08 09:46] LABS: Band Neutrophils Percent 0 % (0-6); Basophils Percent Manual 1 % (0-1); Eosinophils Percent Manual 3 % (1-6); Lymphocytes Percent Manual 25 % (18-44); Monocytes Percent Manual 20 % (3-9); Neutrophils Percent Manual 51 % (46-73); Platelet Estimate Adequate (Adequate); Total Cells Counted 100
[2024-08-08 09:47] LABS: Large Platelets Present
[2024-08-08 09:48] LABS: Schistocytes None Seen
[2024-08-11 16:39] LABS: Tacrolimus Prograf 3.6 mcg/L
== END 2024-09-05 23:59 | disposition home or self-care (01) ==
LOC: CHSLAB 08:51
PROVIDERS: PCP Internal Medicine; Visit Provider Internal Medicine Nephrology
DX: Z94.0 Kidney transplant status (principal); E78.5 Hyperlipidemia, unspecified; Z79.899 Other long term (current) drug therapy
CPT/HCPCS: 36415; 80061; 80069; 80076; 80197; 85025

== ENCOUNTER 2025-01-16 08:38 | Outpatient (RCR) | payer MEDICARE, MEDICAID, SELFPAY ==
--- OUTSIDE RECORDS SUMMARY | 2024-11-25 08:29 | XMS_ITS | Clinical Summary ---
Author Organization [facility] [place] Address [address] [place] [address] Phone Care Team Providers Care Portfolio Director Name Role Phone Unavailable Primary Care Provider [...] Comments Hepatitis C Virus (HCV) Screening 1965 Hepatitis B Immunization (1 of 3 - 19+ 3-dose series) 1984 Pneumococcal Immunization (50+ years) (1 of 2 - PCV) 1984 Zoster Immunization (1 of 2) 1984 Cologuard 2010 Colonoscopy 2010 Colorectal Cancer Screening 2010 Immunochemical Fecal Occult Blood 2010 PSA Discussion 2020 SARS-COV-2 Immunization ( season) 2024 07/05/2021, 12/22/2020, 07/27/2020, Additional history exists Influenza Immunization (#1) 2025 12/0 05/2021, 03/17/2021, 05/21/2018, Additional history exists Respiratory Syncytial Virus (RSV) Immunization (Adult) (1 - 1-dose 75+ series) 2040 DTaP/Tdap/Td Immunization Discontinued 03/15/2010 Human Papillomavirus (HPV) Immunization Aged Out No longer eligible based on patient's age to complete this topic Meningococcal Immunization (ACWY) Aged Out No longer eligible based on patient's age to complete this topic Rotavirus Immunization Aged Out No lo nger eligible based on patient's age to complete this topic
--- OUTSIDE RECORDS SUMMARY | 2024-11-25 08:29 | XMS_ITS | Clinical Summary ---
Author Organization [facility] Address [facility] [place] [address] Care Team Providers Care Journalists And Other Writers Name Role Phone Redd Roberts MD Primary Care Provider + [phone] Angelica Sheehan RN Unavailable [phone] Allergies No known active allergies Medications multivitamin tabletIndication s:Vitamin Deficiency Prevention daily. 8 Active OLANZapine (ZyPREXA) 20 mg tabletIndication s:Schizophrenia Take 1 tablet (20 mg total) by mouth nightly 3 8 Active omeprazole OTC (PriLOSEC OTC) 20 mg EC tablet Take 1 tablet (20 mg total) by mouth helper driver before breakfast 8 Active acyclovir (ZOVIRAX) 200 mg capsule Take 1 capsule (200 mg total) by mouth 2 (two) times a day 180 capsule 3 1 Active Additional Information Patient not taking.Reported on 08/14/2024 tacrolimus 1 mg immediate-releas e capsule TAKE 1 CAPSULE BY MOUTH 2 TIMES A DAY 60 capsule 11 4 Active predniSONE (DELTASONE) 5 mg tabletIndication s:Kidney transplanted TAKE 1 TABLET BY MOUTH EVERY DAY 90 tablet 3 4 Active atorvastatin (LIPITOR) 20 mg tablet TAKE 1 TABLET BY MOUTH EVERY DAY AT NIGHT 90 tablet 3 4 Active mycophenolate mofetil (CELLCEPT) 500 mg tablet TAKE 1 TABLET BY MOUTH TWICE DAILY 60 tablet 11 4 Active folic acid (FOLVITE) 1 mg tablet TAKE 1 TABLET BY MOUTH EVERY DAY IN THE EVENING 90 tablet 3 5 Active sulfamethoxazole -trimethoprim (BACTRIM DS) 800-160 mg per tablet TAKE 1/2 TABLET BY MOUTH DAILY 45 tablet 3 5 Active Active Problems Patient Care Coordination No te Formatting of this note migh t be different from the original. --PT DOES NOT USE MYCHART-- Lab: [facility] PH: [phone]; FX: [phone] SO'S MONTHLY: FK; Q3: ROUTINE (11-20-2025) Problem Noted Date Diagnosed Date Bladder stone 06/28/2018 Overview (06/28/2018): Added automatically from request for surgery [id number] Infectious warts 12/16/2015 Overview (08/17/2017): Description: LN2 [...] Encounters Date Type Department Care Team Description 11/20/2024 Orders Only [facility] Transplant Kidney [address] [facility] [id number] [place] [address] Nesha Sapp Transplanted kidney (Primary Dx); Encounter for long-term (current) use of medications; Hyperlipidemia, unspecified hyperlipidemia type from Last 3 Months Immunizations Immunization Administration Dates Next Due Influenza, Quad, Adjuvantate d, Intramuscular 03/17/2021 Influenza, Quadrivalent, Kari l Culture-based MDCK, Preservative Free, Antibiotic Free, Intramuscular 05/15/2018 Influenza, Quadrivalent, Hig h Dose, Preservative Free, Intrr 04/06/2022 Influenza, Trivalent, Preser vative Free, Intramuscular 03/01/2017,04/15/2015,02/15/2012,02/11 Surgical History Surgery Date Site/Laterality Comments BLADDER REPAIR Repair Of Bladder Reconstruction - augmentation (Added by TW Conv) [place] LITHOLAPAXY COMP/LG > 2.5 CM Cystoscopy With [...] on file 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 Gender Identity Not on file Sexual Orientation Not on file Obstetrics History Last Filed Vital Signs Vital Sign Reading Time Taken Comments Blood Pressure 102/67 08/14/2024 8:10 AM CDT Pulse 112 08/14/2024 8:10 AM CDT Temperature 36.9 C (98.5 F) 08/14/2024 8:10 AM CDT Respiratory Rate 20 07/17/2018 1:11 PM CDT Oxygen Saturation 94% 07/17/2018 3:55 PM CDT Inhaled Oxygen Concentration - - Weight 91.6 kg (202 lb) 08/14/2024 8:10 AM CDT Height 180.3 cm (5' 11) 08/14/2024 8:10 AM CDT Body Mass Index 28.17 08/14/2024 8:10 AM CDT Plan of Treatment Health Maintenance Due Date Last Done Comments Colon Cancer Screening-Colonoscopy 1965 Depression Screening 1965 Hepatitis C Screening 1965 Hepatitis B Screening 1983 Regular Well Visit/Exam 18-64 1983 Pneumococcal vaccine <65 (1 of 2 - PCV) 1984 Zoster Vaccine (1 of 2) 1984 DTaP/Tdap/Td Vaccine (2 - Tdap) 03/15/2020 0 Influenza Vaccine (#1) 2025 2, 03/17/2021, 05/21/2018, Additional history exists Prostate Cancer Screening-PSA 08/14/2026 08/14/2024 Procedures Procedure Name Priority Date/Time Associated Diagnosis Comments PSA, TOTAL AND FREE Routine 08/14/2024 8 :45 AM CDT Encounter for aftercare following kidney transplant Benign prostatic hyperplasia with lower urinary tract symptoms, symptom details unspecified from Last 3 Months or Most Recently Relevant to Health Maintenance Results * PSA, total and free (08/14/2024 8:45 AM CDT) PSA-free <0.1 ng/mL [place] ref Lab PSA-Total 0.13 <=3.5 ng/mL [facility] PSA-Free/Total Ratio See Footnote [facility] Comment: Ratio was not calculated because free PSA is less than 0.1 ng/mL. Ratio not calculated because clinical usefulness is not defined except in range of total PSA 4.0-10.0 ng/mL. ADDITIONAL INFORMATION The testing method is an electrochemiluminescence assay manufactured by [employer] and performed on the Modular or Daryn system. Values obtained with different assay methods or kits may be different and cannot be used interchangeably. Test results cannot be interpreted as absolute evidence for the presence or absence of malignant disease. Test Performed by: [facility] - [address] [address] Tool Profiling Machine Set Up Operator: Fay Reece Ph.D.; IA# [id number] Blood Venous blood specimen / Unknown 08/14/2024 8:45 AM CDT 08/14/2024 11:37 AM CDT us Tremaine Beltran MD LAB BLOOD ORDERABLES Final R esult [facility] Department [place] [address] [facility] Lab from Last 3 Months or Most Recently Relevant to Health Maintenance Insurance MEDICARE MEDICARE [facility] MEDICARE [facility] Address: [address] [address] [place] [address] Care Teams Journalists And Other Writers Relationship Specialty Start Date End Date Redd Roberts MD [address] [place] [address] PCP - General 08/22/16 Angelica Sheehan RN [address] [place] [address] Petroleum Engineer 10/09/17
--- OUTSIDE RECORDS SUMMARY | 2024-11-25 08:29 | XMS_ITS | Referral Summary ---
Author Organization [facility] Address [facility] [place] [address] Care Team Providers Care Bias Binding Folder Name Role Phone Redd Roberts MD Primary Care Provider +- [phone] Angelica Sheehan RN Unavailable [phone] Encounters Date Type Department Care Team Description 11/20/2024 Orders Only [facility] Transplant Kidney [address] [facility] [phone] [place] [address] Nesha Sapp Transplanted kidney (Primary Dx); Encounter for long-term (current) use of medications; Hyperlipidemia, unspecified hyperlipidemia type from Last 3 Months Allergies No known active allergies Medications multivitamin tabletIndication s:Vitamin Deficiency Prevention daily. 8 Active OLANZapine (ZyPREXA) 20 mg tabletIndication s:Schizophrenia Take 1 tablet (20 mg total) by mouth nightly 3 8 Active omeprazole OTC (PriLOSEC OTC) 20 mg EC tablet Take 1 tablet (20 mg total) by mouth school athletic director before breakfast 8 Active acyclovir (ZOVIRAX) 200 [...] original. 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 Test Performed by: [facility] [address] [id number] Golf Manager: Fay Reece Ph.D.; CLIA# [id number] Blood Venous blood specimen / Unknown 08/14/2024 8:45 AM CDT 08/14/2024 11:37 AM CDT us Tremaine Beltran MD LAB BLOOD ORDERABLES Final R esult [facility] [place] [address] [facility] Lab from Last 3 Months or Most Recently Relevant to Health Maintenance Insurance MEDICARE MEDICARE [facility] MEDICARE Care Teams Bias Binding Folder Relationship Specialty Start Date End Date Redd Roberts MD [address] [place] [address] PCP - General 08/22/16 Angelica Sheehan, RN [address] [address] Supervisor Building Maintenance 10/09/17
--- OUTSIDE RECORDS SUMMARY | 2024-11-25 08:30 | XMS_ITS | Patient Health Record ---
Author Organization [facility] As [facility] Address [address] [facility] [address] [place] [address] Care Team Providers Care Top Collar Maker Name Role Phone Janusz Clark Unavailable [phone] Allergies No Known Allergies Reason For Referral No Information Medications Medication SIG (Take, Route, Frequency, Duration) Notes Start Date End Date Status Tacrolimus 1 MG Oral; Duration: 30 Days Active predniSONE 5 MG Oral; Duration: 90 Days Active Folic Acid 1 MG TAKE 1 TABLET BY ANNIE TH EVERY DAY IN THE EVENING Oral; Duration: 90 Days Active Atorvastatin Calcium 20 MG Oral; Duration: 90 Days Active OLANZapine 20 MG 1 tablet Oral Once a day; Duration: 90 days Active Social History Tobacco Use: [...] W/U Status Risk Notes Problem Paranoid schizophrenia (53490953) Paranoid schizophrenia (F20.0) Active confirmed Problem History of renal transplant (254765054) Kidney transplant recipient (Z94.0) Active confirmed Vital Signs Heart Rate 92 /min 09/15/2024 Height-cm 180.34 cm 09/15/2024 Blood pressure diastolic 79 mm Hg 09/15/2024 Weight-kg 90.27 kg 09/15/2024 Height 71.00 in 09/15/2024 Blood pressure systolic 120 mm Hg 09/15/2024 Weight 199 lbs 09/15/2024 BMI 27.75 kg/m2 09/15/2024 Encounters Encounter Location Date [facility] [address] [place] [address] 03/17/2024 Janusz Clark Paranoid schizophren ia F20.0 and Kidney transplant recipient Z94.0 [facility] [address] [place] [address] 09/15/2024 Janusz Clark Paranoid schizophren ia F20.0 ; Kidney transplant recipient Z94.0 ; Negative depression screening Z13.31 and Encounter for screening for cardiovascular disorders Z13.6 Assessments Encounter Date Diagnosis (ICD Code) Assessment [...] supplements or increase dietary intake of vitamin Y09-zslm foods. Follow-up with primary care physician for [...] - Plan: Medications will be sent to [facility] in [place]. No need to send a note to the patient's medical doctor at this time. 09/15/2024 Paranoid schizophrenia (ICD-10 - F20.0) 09/15/2024 Kidney transplant recipient (ICD-10 - Z94.0) 09/15/2024 Negative depression screening (ICD-10 - Z13.31) 03/17/2024 Kidney transplant recipient (ICD-10 - Z94.0) [...] supplements or increase dietary intake of vitamin K46-buuz foods. Follow-up with primary care physician for [...] - Plan: Medications will be sent to [facility] in [place]. No need to send a note to the patient's medical doctor at this time. 09/15/2024 Encounter for screening for cardiovascular disorders (ICD-10 - Z13.6) 09/15/2024 Other Jesus Meadews, male patient with history of kidney transplant and schizophrenia, presents for 6-month follow-up with stable symptoms and ongoing auditory hallucinations. Schizophrenia Assessment: Patient reports ongoing auditory hallucinations, including talking to himself and arguing with voices. He denies current paranoid delusions or feelings of being controlled, which were present in previous visits. Patient continues to experience the sensation of receiving messages from the television. No visual hallucinations reported. Overall, the patient's schizophrenia symptoms appear relatively stable since the last visit 6 months ago. Plan: - Continue olanzapine 20 mg (route and frequency not specified) - Follow up in 6 months Status post kidney transplant Assessment: Patient has a history of kidney transplant and is currently on immunosuppressive therapy. He is being followed by a renal specialist, Dr. Beltran, who manages his transplant-related medications. Plan: - Continue current immunosuppressive regimen: - Cyclosporine (dose, route, and frequency not specified) - Tacrolimus (dose, route, and frequency not specified) - Recommend establishing care with a primary care physician for comprehensive health management Osteoporosis Assessment: Patient has a diagnosis of osteoporosis based on a bone density test performed in August. Plan: - Continue current management (specific interventions not discussed) Hyperlipidemia Assessment: Patient has a history of hyperlipidemia, currently managed with medication. Last cholesterol panel from February 2020 showed total cholesterol of 137 mg/dL and HDL of 45 mg/dL, indicating good control. Plan: - Continue atorvastatin (dose, route, and frequency not specified) Hearing loss Assessment: Patient reported to have some hearing loss, though the extent and impact on daily functioning were not discussed in detail. Plan: - No specific interventions discussed Disclaimer: This note has been transcribed using speech recognition software and serves as a reflection of the patient's visit. While efforts have been made to ensure accuracy, there may be errors, including agriculture research director inaccuracies and misspellings of medication names. This document should not be considered a verbatim record, and any discrepancies should be verified with the provider. Plan Of Treatment Pending Test Test Name Order Date Vitamin B12 and Folate 10/29/2023 Hemoglobin A1c 10/29/2023 TSH 10/29/2023 Vitamin D, 25-Hydroxy 10/29/2023 CBC 10/29/2023 COMPREHENSIVE METABOLIC PANEL (08563) Next Appt Details Provider Name:Janusz Estrada Eduardo , 03/16/2025 08:30:00 AM, [address] [facility] [address], [facility] [address], [place], [address], Insurance Providers Payer Name Payer Address Payer Phone Subscriber Number Group Number Insured Name Patient Relationship to Insured Coverage Start Date Coverage End Date Medicare-I l Medicare [address] [place] [phone] [id number] JERRYJESUS Self - patient is the insured Medical (General) History Medical History History ICD Code Problems: History of renal transplant Paranoid schizophrenia , Imported from [place]: Th e patient has had a series of medical encounters from November 2023 to August 2024. The patient underwent a kidney transplant, with aftercare provided by various healthcare providers, including Dr. Redd Roberts at [facility] and Dr. Wilda Camarillo at [facility]. The patient also had a telephone consultation with Angelica Sheehan RN at [facility], regarding the kidney transplant. The patient has been on high-risk medication for an unspecified type of hyperlipidemia. In August 2024, the patient was hospitalized under the care of Dr. Tremaine Beltran at [facility] for aftercare following the kidney transplant. The patient also has benign prostatic hyperplasia with unspecified lower urinary tract symptoms and localized osteoporosis without a current pathological fracture. The patient is currently using steroid medication and has age-related osteoporosis. Imported from [place]: Tim st Name: Lipid panel Facility Name: [facility] Test Result Date: 2024-02-19 08:42:48 Results: Cholesterol, Total 137 mg/dl, HDL 45 mg/dl, LDL 75 mg/dl, Triglycerides 78 mg/dl Surgical History Surgery Date(Month/Year) Other 12/06/2003
--- OUTSIDE RECORDS SUMMARY | 2024-11-25 08:32 | XMS_ITS | Clinical Summary ---
Author Organization [facility] Address [address] [place] [address] Care Team Providers Care Informatics Pharmacist Name Role Phone Unavailable Primary Care Provider [...] Td Vaccines ( 1 - Tdap) 1984 Pneumococcal Vaccine: 50+ Ye ars (1 of 1 - PCV) 2015 Zoster Vaccines (1 of 2) 2015 COVID-19 Vaccine ( - 2023-2 5 season) 2024 Meningococcal B Vaccine Aged Out No l onger eligible based on patient's age to complete this topic Meningococcal Vaccine Aged Out No melia dory eligible based on patient's age to complete this topic RSV Immunizations Under 20 Months Aged Out No longer eligible based on patient's age to complete this topic
--- OUTSIDE RECORDS SUMMARY | 2024-11-25 08:32 | XMS_ITS ---
Author Organization [facility] Address [address] [place] [address] Care Team Providers Care Pharmaceutical Assistant Name Role Phone Redd Roberts MD Primary Care Provider +- [phone] Angelica Sheehan RN Unavailable [phone] Transplant Episode Kidney Recipient [facility] ([place], [place]) - [facility] Organ Received: Right Kidney Transplanted on 12/19/1993 Marked as Active Follow-up on 12/19/1993 Kidney CoordinatorAngelica Sheehan RN Fax: N/A Email: N/A [place] Organ Diagnosis Organ Primary Contributory Kidney Acquired [...] Fax Email Angelica Sheehan RN Kidney Coordinator [phone] N/A N/A Alexandra Ollie Douglas, RN Secondary Coordinator Secondary Kidney Coordinator N/A N/A N/A Nesha Sapp Primary Blow Machine Tender Starch Spraying N/A N/A N/A Angelica Sheehan RN Ecology Teacher [phone] N/A N/A Zaira Cancino Secondary Blow Machine Tender Starch Spraying N/A N/A N/A Events Post-Transplant Pre-Transplant Transplanted: 12/19/1993 Referred: 05/23/1990 Discharged: 12/31/1993 Evaluation began: 05/17/1991 Center waitlisted: 3
[2024-11-25 08:38] LABS: Hematocrit 47.5 % (40.0-54.0); Hemoglobin 15.5 g/dL (14.0-18.0); Mean Corpuscular HGB Conc 32.6 g/dL (32-36); Mean Corpuscular Hemoglobin 32.0 pg (27.0-31.0); Mean Corpuscular Volume 98.1 fL (78.0-102.0); Platelet Count Result 321 K/mm3 (150-420); Red Blood Count 4.84 M/mm3 (4.70-6.10); White Blood Count 10.6 K/mm3 (4.8-10.8)
[2024-11-25 09:01] LABS: Band Neutrophils Percent 0 % (0-6); Eosinophils Absolute Manual 0.31 K/mm3 (0.02-0.50); Eosinophils Percent Manual 3 % (1-6); Lymphocytes Absolute Manual 2.54 K/mm3 (1.1-4.5); Lymphocytes Percent Manual 24 % (18-44); Monocytes Absolute Manual 1.16 K/mm3 (0.1-0.90); Monocytes Percent Manual 11 % (3-9); Neutrophils Absolute Manual 6.57 K/mm3 (1.3-6.7); Neutrophils Percent Manual 62 % (46-73); Total Cells Counted 100
[2024-11-25 10:49] LABS: Alanine Aminotransferase 16 U/L (6-50); Albumin Level 4.1 g/dL (3.5-5.1); Alkaline Phosphatase 108 U/L (38-126); Anion Gap 8 mmol/L (4-12); Aspartate Amino Transferase 20 U/L (17-59); Bilirubin,Total 0.9 mg/dL (0.2-1.3); Blood Urea Nitrogen 17 mg/dL (9-20); Calcium 9.6 mg/dL (8.4-10.2); Carbon Dioxide 23 mmol/L (22-30); Chloride 111 mmol/L (98-107); Cholesterol 126 mg/dL (0-200); Estimated Glomerular Filt Rate 39; Glucose 95 mg/dL (65-110); HDL Direct 37 mg/dL; Osmolality Calculated 295 mOsm/kg (285-295); Potassium 4.6 mmol/L (3.4-5.0); Sodium 142 mmol/L (137-145); Total Protein 6.9 g/dL (6.3-8.2); Triglycerides 97 mg/dL (<150)
[2024-11-28 18:08] LABS: Tacrolimus (FK506), Blood 3.7 ng/mL (5.0-20.0)
[2025-01-16 08:51] LABS: Hematocrit 50.4 % (40.0-54.0); Hemoglobin 15.9 g/dL (14.0-18.0); Immature Granulocyte Percent A 0.4 % (0.0-0.0); Lymphocytes Absolute Auto 3.21 K/mm3 (1.10-4.50); Mean Corpuscular HGB Conc 31.5 g/dL (32-36); Mean Corpuscular Hemoglobin 31.9 pg (27.0-31.0); Mean Corpuscular Volume 101.0 fL (78.0-102.0); Nucleated Red Blood Cells Absolute Auto 0.00 K/mm3 (0.00-0.00); Nucleated Red Blood Cells Perc 0.0 % (0-0.0); Platelet Count Result 370 K/mm3 (150-420); Red Blood Count 4.99 M/mm3 (4.70-6.10); White Blood Count 10.8 K/mm3 (4.8-10.8)
[2025-01-16 09:37] LABS: Albumin Level 4.4 g/dL (3.5-5.1); Anion Gap 12 mmol/L (4-12); Blood Urea Nitrogen 19 mg/dL (9-20); Calcium 9.9 mg/dL (8.4-10.2); Carbon Dioxide 26 mmol/L (22-30); Chloride 107 mmol/L (98-107); Estimated Glomerular Filt Rate 44; Glucose 99 mg/dL (65-110); Osmolality Calculated 302 mOsm/kg (285-295); Potassium 4.7 mmol/L (3.4-5.0); Sodium 145 mmol/L (137-145)
[2025-01-19 23:07] LABS: Tacrolimus (FK506), Blood 3.2 ng/mL (5.0-20.0)
== END 2025-02-23 23:59 | disposition home or self-care (01) ==
LOC: CHSLAB 08:38
PROVIDERS: PCP Internal Medicine; Visit Provider Internal Medicine Nephrology
DX: Z94.0 Kidney transplant status (principal); Z79.899 Other long term (current) drug therapy
CPT/HCPCS: 36415; 80061; 80069; 80076; 80197; 85025

== ENCOUNTER 2025-02-26 12:43 | Outpatient (CLI) | payer MEDICARE, SELFPAY ==
--- OUTSIDE RECORDS SUMMARY | 2025-02-26 09:45 | XMS_ITS | Encounter Summary ---
Author Organization [facility] Address [address] [place] [address] Phone Care Team Providers Care Business Services Intern Name Role Phone Melchor Roberts MD Primary Care Provider [phone] Angelica Sheehan RN Unavailable [phone] Encounter Details Date Type Department Care Team (Late st Contact Info) Description 02/26/2025 9:45 AM CDT Office Visit [facility] Medicine Nephrology [address] [place] [address] [facility] 5th [place] [address] [place] [address] Encounter for aftercare following kidney transplant (Primary Dx) Social History Tobacco Use Types Packs/Day Years Used Date Smoking Tobacco: Never Smokeless Tobacco: Never Tobacco Cessation:Counseling Given: Not Answered Alcohol Use Standard Drinks/Week Comments No 0 (1 standard drink = 0.6 oz pur e alcohol) AUDIT-C Answer Date Recorded Frequency of Alcohol Consumption Not on file 01/06/2025 Q2: How many drinks containi ng alcohol do you have on a typical day when you are drinking? Patient does not drink Frequency of Binge Drinking Not on file 06/2024 Personal Safety Answer Date Recorded Have you ever been in or are you currently in a harmful physical or emotional relationship or is someone making you feel afraid or unsafe? 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 Gender Identity Male 12/01/2024 1:38 PM CDT Sexual Orientation Not on file documented as of this encounter Last Filed Vital Signs Vital Sign Reading Time Taken Comments Blood Pressure 153/89 02/26/2025 9:35 AM CDT Pulse 101 02/26/2025 9:35 AM CDT Temperature 36.8 C (98.2 F) 02/26/2025 9:35 AM CDT Respiratory Rate - - Oxygen Saturation - - Inhaled Oxygen Concentration - - Weight 89.9 kg (198 lb 4.8 oz) 02/26/2025 9:35 A M CDT Height 180.3 cm (5' 11) 02/26/2025 9:35 AM CDT Body Mass Index 27.66 02/26/2025 9:35 AM CDT documented in this encounter Progress Notes * Tremaine Beltran MD - 02/26/2025 9:45 AM CDT PATIENT NAME: JESUS DIA : 1965 PABLO: 08/14/2024 HISTORY OF PRESENT ILLNESS: Mr. 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 Background illness is neurogenic bladder with reflux nephropathy, unobstructed uropathy. He comes today for follow-up of his renal transplant and other medical-related issues. MEDICATIONS: Prograf 1 mg b.i.d. CellCept 500 mg once a day. Prednisone 5 mg daily. Bactrim DS ?? tablet daily. Folate daily. Lipitor 20 mg daily. Prilosec 20 mg daily. Zyprexa 20 mg at bedtime. Medications are unchanged. REVIEW OF SYSTEMS: Since last seen on 02/14/2024, continues to do very well. However has been recently treated for asymptomatic UTI, with unknown antibiotic. Advised to continu ob Bactrim SS One every other day. continues self catheterization 3 times a day. He is fully vaccinated for COVID and flu. Denies any specific complaints today of chest pain, shortness of breath, febrile illness, infective cough or expectoration, no upper or lower GI symptomatology, no foul-smelling urine. No lower extremity edema. BP at home < 130 Systolic PHYSICAL EXAMINATION: GENERAL: Well-appearing in male, in no acute distress, alert and oriented x3. BP 153/89 Pulse 101 Temp 36.8 ??C (98.2 ??F) Ht 180.3 cm (5' 11) Wt 89.9 kg (198 lb 4.8 oz) BMI 27.66 kg/m?? HEENT: Normocephalic. Pupils equally react to light and accommodation. Sclerae is anicteric. NECK: Supple. No JVD. LUNGS: Clear to auscultation. CARDIOVASCULAR: Regular rate and rhythm. No murmurs or gallops. ABDOMEN: Soft, nontender. Right iliac fossa allograft without enlargement or bruits. EXTREMITIES: Show no edema. Palpable, symmetrical pulses. LABORATORY: Sodium Date Value Ref Range Status 08/14/2024 141 135 - 145 mmol/L Final 07/10/2018 143 135 - 145 mmol/L Final 04/15/2015 143 135 - 145 mmol/L Potassium Date Value Ref Range Status 08/14/2024 3.7 3.3 - 5.1 mmol/L Final Potassium, pl Date Value Ref Range Status 07/10/2018 4.0 3.3 - 4.9 mmol/L Final K, pl Date Value Ref Range Status 04/15/2015 4.4 3.3 - 4.9 mmol/L CO2 Date Value Ref Range Status 07/10/2018 20 (L) 22 - 32 mmol/L Final 04/15/2015 30 22 - 32 mmol/L CO2 Content Date Value Ref Range Status 08/14/2024 22 21 - 29 mmol/L Final BUN Date Value Ref Range Status 08/14/2024 21 7 - 23 mg/dL Final 07/10/2018 24 8 - 25 mg/dL Final 04/15/2015 31 (H) 8 - 25 mg/dl SCRIBED Creatinine Date Value Ref Range Status 02/24/2025 1.63 (A) 0.80 - 1.30 mg/dL Final 01/16/2025 1.63 (A) 0.7 - 1.3 mg/dL Final 11/25/2024 1.79 (A) 0.7 - 1.3 mg/dl Final Albumin Date Value Ref Range Status 08/14/2024 4.3 3.5 - 5.2 g/dL Final Calcium Date Value Ref Range Status 08/14/2024 9.5 8.6 - 10.3 mg/dL Final 07/10/2018 9.6 8.5 - 10.3 mg/dL Final 04/15/2015 10.4 (H) 8.6 - 10.3 mg/dl Phosphorus Date Value Ref Range Status 08/14/2024 1.9 (L) 2.3 - 4.5 mg/dL Final PTH, intact Date Value Ref Range Status 04/15/2015 91 (H) 14 - 72 pg/ml 25-OH Vit D Date Value Ref Range Status 04/15/2015 36 30 - 100 ng/ml Hgb Date Value Ref Range Status 04/15/2015 14.9 13.8 - 17.2 g/dl [place] level: 3.2 (01/16/25) ASSESSMENT AND PLAN: 59-year-old male, now entering 32 years post transplant. Serum creatinine appears stable between 1.6 and 1.8 on tacrolimus-based immune suppression. Most recent one up to 2 mg/dl. Incidental finding of transient hypercalcemia. Serum calcium has been within normal limits. Will check a PTH value Chronic immunosuppression, no recent immunosuppression complications. Patient continues to follow closely with Dermatology, on a decreased dose of mycophenolate because of his basal cell carcinoma ofthe skin. History of schizophrenia. Under excellent control with Zyprexa. Hypophosphatemia. Phosphorus within normal limits, with increased dietary supplementation. Transient leukocytosis. Now slightly elevated Metabolic bone disease. On calcium and vitamin D. Has a DEXA scan in the last couple of years. Repeat one shows severe osteoporosis. Will refer for Bone health consult Health maintenance: Instructed to repeat colonoscopy. Last 10 years ago. DISPOSITION: Patient up to date with maintenance care. RTC in 6 months Tremaine Beltran M.D. vaccine key customer leader MR/ps cc: MELCHOR ROBERTS MD [address] [place] [address] [facility] documented in this encounter Plan of Treatment Scheduled Orders Name Type Priority Associated Diagnoses Orde r Schedule PTH Lab Routine Encounter for aftercare following kidney transplant Expected: 02/26/2025, Expires: 02/26/2026 documented as of this encounter Procedures Procedure Name Priority Date/Time Associated Diagnosis Comments POCT URINALYSIS DIPSTICK Routine 02/26/2025 10:06 AM CDT Encounter for aftercare following kidney transplant documented in this encounter Results * (ABNORMAL) POCT urinalysis dipstick (02/26/2025 10:06 AM CDT) Glucose, ur, POC Negative Negative TXP NO LAB FOUND Bilirubin, ur, POC Negative Negative TXP NO LAB FOUND Ketones, ur, POC Negative Negative TXP NO LAB FOUND Specific [place], POC 1.015 1.003 - 1.030 TXP NO LAB FOUND Blood, ur, POC 2+(A) Negative TXP NO LAB FOUND pH, ur, POC 7.0 5.0 - 8.0 TXP NO L AB FOUND Protein, ur, POC Trace(A) Negative TXP NO LAB FOUND Urobilinogen, urine, POC 0.2 0.2 - 1.0 mg/dL TXP NO LAB FOUND Nitrite, ur, POC Positive(A) Negative TXP NO LAB FOUND Leukocytes, ur, POC 3+(A) Negative TXP NO LAB FOUND Lot Number [id number] TXP NO LA B FOUND Urine 02/26/2025 10:0 6 AM CDT us Tremaine Beltran MD POINT OF CARE TEST ORDERABLE S Final Result TXP NO LAB FOUND documented in this encounter Visit Diagnoses Diagnosis Encounter for aftercare following kidney transplant- Primary documented in this encounter Care Teams Business Services Intern Relationship Specialty Start Date End Date Melchor Roberts MD [address] [place] [address] PCP - General 08/22/16 Angelica Sheehan, RANDOL[place] [address] [address] Physical Education Department Chair 10/09/17 documented as of this encounter
--- OUTSIDE RECORDS SUMMARY | 2025-02-26 13:37 | XMS_ITS | Clinical Summary ---
Author Organization [facility] Address [address] [place] [id number] Care Team Providers Care Crude Oil Driver Name Role Phone Redd Roberts MD Primary Care Provider [phone]- [phone] Angelica Sheehan RN Unavailable [phone] Allergies No known active allergies Medications multivitamin tabletIndicatio ns:Vitamin Deficiency Prevention daily. 11/06/19 08 Active OLANZapine (ZyPREXA) 20 mg tabletIndicatio ns:Schizophreni a Take 1 tablet (20 mg total) by mouth nightly 3 01/21/20 18 Active omeprazole OTC (PriLOSEC OTC) 20 mg EC tablet Take 1 tablet (20 mg total) by mouth ornamental iron erector before breakfast 11/06/19 08 Active acyclovir (ZOVIRAX) 200 mg capsule Take 1 capsule (200 mg total) by mouth 2 (two) times a day 180 capsule 3 07/21/19 21 Active Additional Information Patient not taking.Reported on 08/14/2024 atorvastatin (LIPITOR) 20 mg tablet TAKE 1 TABLET BY MOUTH EVERY DAY AT NIGHT 90 tablet 3 01/03/20 24 Active folic acid (FOLVITE) 1 mg tablet TAKE 1 TABLET BY MOUTH EVERY DAY IN THE EVENING 90 tablet 3 05/15/19 25 Active sulfamethoxazol e-trimethoprim (BACTRIM DS) 800-160 mg per tablet TAKE 1/2 TABLET BY MOUTH DAILY 45 tablet 3 05/19/19 25 Active tacrolimus 1 mg immediate-relea se capsule TAKE 1 CAPSULE BY MOUTH 2 TIMES A DAY 60 capsule 11 12/13/19 25 Active mycophenolate mofetil (CELLCEPT) 500 mg tablet TAKE 1 TABLET BY MOUTH 2 TIMES A DAY 60 tablet 11 01/14/20 25 Active predniSONE (DELTASONE) 5 mg tabletIndicatio ns:Kidney transplanted TAKE 1 TABLET BY MOUTH EVERY DAY 90 tablet 3 02/05/20 25 Active predniSONE (DELTASONE) 5 mg tabletIndicatio ns:Kidney transplanted TAKE 1 TABLET BY MOUTH EVERY DAY 90 tablet 3 01/03/20 24 025 Discontinued nitrofurantoin monohydrate (MACROBID) 100 mg capsuleIndicati ons:Neurogenic bladder,Acute cystitis without hematuria Take 1 capsule (100 mg total) by mouth 2 (two) times a day for 7 days 14 capsule 02/17/20 25 025 Active Problems Patient Care Coordination No te Formatting of this note migh t be different from the original. --PT DOES NOT USE MYCHART-- Lab: [facility] PH: [phone]; FX: [phone] SO'S MONTHLY: FK; Q3: ROUTINE (11-20-2025) Problem Noted Date Diagnosed Date History of colonic polyps 12/08/2024 Encounter for screening colonoscopy 12/08/2024 Bladder stone 06/28/2018 Overview (06/28/2018): Added automatically from request for surgery [id number] Infectious warts 12/16/2015 Overview (08/17/2017): Description: LN2 [...] Encounters Date Type Department Care Team Description 02/26/2025 9:45 AM CDT Office Visit [facility] [address] 5th [place] [address] [place] [phone] Encounter for aftercare following kidney transplant (Primary Dx) 02/26/2025 Telephone [facility] Transplant Kidney [address] Mailstop [phone] [place] [address] Angelica Horvath RN 02/16/2025 Orders Only [facility] Urology [address] [place] [address] Jess Guadalupe MD Neurogenic bladder (Primary Dx); Acute cystitis without hematuria 02/16/2025 Results Follow-Up [facility] [address] 11[address] [place] [address] [place] [phone] Jess Guadalupe MD Urine culture Urine, in and out catheter 02/12/2025 10:58 AM CDT - 02/12/2025 11:59 PM CDT Hospital Encounter [facility] of [address] [address] Neurogenic bladder; Acute cystitis without hematuria Discharge Disposition: Discharge to home or self care 02/12/2025 10:40 AM CDT Office Visit [facility]rology [address] [place] [phone] Jess Guadalupe MD Neurogenic bladder (Primary Dx); Acute cystitis without hematuria; History of bladder stone; History of augmentation of urinary bladder 01/09/2025 Results Follow-Up [facility] G[facility]enterology at [address] [place] [address] Wil Jiang MD Surgical pathology 01/07/2025 2:22 PM CDT Anesthesia Event [address] [address] Isidro Carias MD Alexander, Jeffrey Michael, 01/07/2025 2:00 PM CDT - 01/07/2025 2:30 PM CDT Surgery [address] [address] Wil Jiang MD COLON REMOVAL SNARE 01/07/2025 12:03 PM CDT - 01/07/2025 3:40 PM CDT Hospital Encounter [address] [address] Wil Jiang MD History of colonic polyps; Encounter for screening colonoscopy Discharge Disposition: Discharge to home or self care 12/26/2024 Results Follow-Up [facility] Dermatology [address] [place] [address] [address] [place] [address] Kaya Adorno MD PhD Surgical pathology 12/26/2024 Documentation [facility] [address] [place] [address] [address] [place] [phone] Kaya Adorno MD PhD 12/24/2024 Orders Only [facility] Pathology Outreach [address] [place] [address] Kaya Adorno MD PhD Neoplasm of unspecified behavior of bone, soft tissue, and skin 12/23/2024 11:00 AM CDT Office Visit [facility] [address] [place] [address] [address] [place] [address] Kaya Adorno MD PhD Neoplasm of unspecified behavior of bone, soft tissue, and skin (Primary Dx); Seborrheic keratosis; Porokeratosis; History of kidney transplant 12/08/2024 Telephone [facility] G[facility]ology at [address] [place] [address] Wil Jiang MD from Last 3 Months Immunizations Immunization Administration Dates Next Due Influenza, Quad, Adjuvantate d, Intramuscular 03/17/2021 Influenza, Quadrivalent, Kari l Culture-based MDCK, Preservative Free, Antibiotic Free, Intramuscular 05/15/2018 Influenza, Quadrivalent, Hig h Dose, Preservative Free, Intrr 04/06/2022 Influenza, Trivalent, Preser vative Free, Intramuscular 03/01/2017,04/15/2015,02/15/2012,02/11 Surgical History Surgery Date Site/Laterality Comments BLADDER REPAIR Repair Of Bladder Reconstruction - augmentation (Added by TW Conv) UT LITHOLAPAXY COMP/LG > 2.5 CM Cystoscopy With [...] on file Legal Sex Male 7:00 PM [employer]IND T[employer] Gender Identity Male 12/01/2024 1:38 PM CDT Sexual Orientation Not on file Obstetrics History Last Filed Vital Signs Vital Sign Reading Time Taken Comments Blood Pressure 153/89 02/26/2025 9:35 AM CDT Pulse 101 02/26/2025 9:35 AM CDT Temperature 36.8 C (98.2 F) 02/26/2025 9:35 AM CDT Respiratory Rate 16 01/07/2025 3:35 PM CDT Oxygen Saturation 96% 01/07/2025 3:35 PM CDT Inhaled Oxygen Concentration - - Weight 89.9 kg (198 lb 4.8 oz) 02/26/2025 9:35 A M CDT Height 180.3 cm (5' 11) 02/26/2025 9:35 AM CDT Body Mass Index 27.66 02/26/2025 9:35 AM CDT Plan of Treatment Health Maintenance Due Date Last Done Comments Depression Screening 1965 Hepatitis C Screening 1965 Hepatitis B Screening 1983 Regular Well Visit/Exam 18-64 1983 Pneumococcal vaccine <65 (1 of 2 - PCV) 1984 Zoster Vaccine (1 of 2) 1984 DTaP/Tdap/Td Vaccine (2 - Tdap) 03/15/2020 0 Influenza Vaccine (#1) 2025 2, 03/17/2021, 05/21/2018, Additional history exists Prostate Cancer Screening-PSA 08/14/2026 08/14/2024 Colon Cancer Screening-Colonoscopy 01/07/2035 01/07/2025 Colon Cancer Screening-CT Colonography Discontinued 01/07/2025 Colon Cancer Screening-DNA Stool Discontinued 01/08/20 25 Colon Cancer Screening-FIT Discontinued 01/07/2025 Colon Cancer Screening-Sigmoidoscopy Discontinued 01/07/2025 Procedures Procedure Name Priority Date/Time Associated Diagnosis Comments POCT URINALYSIS DIPSTICK Routine 02/26/2025 10:06 AM CDT Encounter for aftercare following kidney transplant RENAL FUNCTION PANEL Routine 02/24/2025 9:48 AM CDT HEPATIC FUNCTION PANEL Routine 02/24/2025 9:48 AM CDT LIPID PANEL Routine 02/24/2025 9:48 AM CDT CBC WITH AUTO DIFFERENTIAL Routine 02/24/2025 9:48 AM CDT URINE CULTURE Routine 02/12/2025 2:17 PM CDT Neurogenic bladder Acute cystitis without hematuria POCT URINALYSIS DIPSTICK Routine 02/12/2025 10:27 AM CDT Neurogenic bladder TACROLIMUS LEVEL, TROUGH Routine 01/16/2025 8:47 AM CDT RENAL FUNCTION PANEL Routine 01/16/2025 8:47 AM CDT CBC WITH AUTO DIFFERENTIAL Routine 01/16/2025 8:47 AM CDT SURGICAL PATHOLOGY STAT 01/07/2025 2: 50 PM CDT History of colonic polyps Encounter for screening colonoscopy COLON REMOVAL SNARE 01/07/2025 2 :15 PM CDT History of colonic polyps Encounter for screening colonoscopy COLONOSCOPY 01/07/2025 12:09 PM CDT SURGICAL PATHOLOGY Routine 12/23/2024 12 :00 AM CDT Neoplasm of unspecified behavior of bone, soft tissue, and skin PSA, TOTAL AND FREE Routine 08/14/2024 8 :45 AM CDT Encounter for aftercare following kidney transplant Benign prostatic hyperplasia with lower urinary tract symptoms, symptom details unspecified from Last 3 Months or Most Recently Relevant to Health Maintenance Results * (ABNORMAL) POCT urinalysis dipstick (02/26/2025 10:06 AM CDT) Glucose, ur, POC Negative Negative TXP NO LAB FOUND Bilirubin, ur, POC Negative Negative TXP NO LAB FOUND Ketones, ur, POC Negative Negative TXP NO LAB FOUND Specific [facility], POC 1.015 1.003 - 1.030 TXP NO [...] Negative TXP NO LAB FOUND Lot Number [id number] TXP NO LA B FOUND Urine 02/26/2025 10:0 6 AM CDT Tremaine Beltran MD POINT OF CARE TEST ORDERABLE S Final Result TXP NO LAB FOUND * (ABNORMAL) CBC with auto differential (02/24/2025 9:48 AM CDT) SCRIBED WBC 10.2(A) 3.8 - 9.9 K/cumm [facility] SCRIB Hemoglobin 15.8 13.0 - 17.5 g/dL [facility] Hematocrit 49.8(A) 35.6 - 45.5 % [facility] SCRIB Platelets 350 150 - 400 K/cumm [facility] SCRIBED RBC COMMUNIT Y [facility] Comment:- SCRIBED Lymphocytes Abs 2.81 0.8 - 3.3 K/cumm [facility] Blood 02/24/2025 9:48 AM CDT Historical Provider LAB BLOOD ORDERABLES Edit ed Result - Final [address] [phone] * (ABNORMAL) Hepatic function panel (02/24/2025 9:48 AM CDT) SCRIBED Protein, Total, Serum 8.4(A) 6.3 - 8.2 g/dL [facility] SCRIB Albumin 4.4 3.5 - 5.0 g/dL [facility] Bilirubin, Total 1.0 0.2 - 1.3 mg/dL [facility] Bilirubin, Direct <0.1 0 - 0.3 mg/dL [facility] Alkaline Phosphatase 110 40 - 130 Units/L [facility] Aspartate Transaminase (AST) 23 10 - 50 Units/L [facility] Alanine Transaminase (ALT) 16 7 - 55 Units/L [facility] Blood 02/24/2025 9:48 AM CDT us Historical Provider LAB BLOOD ORDERABLES Shandra vergara Result [address] [phone] * (ABNORMAL) Renal function panel (02/24/2025 9:48 AM CDT) SCRIBED Sodium 144 135 - 145 mmol/L [facility] Potassium 4.8 3.3 - 5.2 mmol/L [facility] Chloride 108 97 - 110 mmol/L [facility] Carbon Dioxide 27 22 - 32 mmol/L [facility] Anion Gap 9 2 - 15 mmol/L [facility] Urea Nitrogen (BUN) 24 6 - 25 mg/dL [facility] Creatinine 1.63(A) 0.80 - 1.30 mg/dL [facility] Glucose 110 70 - 199 mg/dL [facility] Calcium 10.1 8.5 - 10.3 mg/dL [facility] Phosphorus 2.7 2.3 - 4.5 mg/dL [facility] Albumin 4.4 3.5 - 5.0 g/dL [facility] SCRIBED eGFR 44 >60 mL/min/1.7 3 m2 [facility] Blood 02/24/2025 9:48 AM CDT Historical Provider LAB BLOOD ORDERABLES Shandra l Result Performing Organization Address [facility]/ZIP [place] [address], [facility] [phone] * Lipid panel (02/24/2025 9:48 AM CDT) SCRIBED Cholesterol, Total 129 30 - 199 mg/dL [facility] SCRIBED Triglycerides 81 <=149 mg/dL [facility] SCRIBED HDL 43 >=40 mg/dL [facility] SCRIBED LDL 70 <=129 mg/dL [facility] Scribed Non-HDL Cholesterol [facility] Comment:- SCRIBED Total Cholesterol/HDL Ratio [facility] Comment:- Blood 02/24/2025 9:48 AM CDT Historical Provider LAB BLOOD ORDERABLES Edit ed Result - Final Performing Organization Address [facility] [place] [address], [facility] [phone] * (ABNORMAL) Urine culture Urine, in and out catheter (02/12/2025 2:17 PM CDT) Report Final Report: Greater than or equal to 100,000 colonies/mL of Escherichia coli (.) Organism ESCHERICHIA COLI [facility] Urine, in and out catheter 02/12/2025 2:17 PM CDT 02/12/2025 4:53 PM CDT Narrative [facility] - 02/15/2025 10:02 AM CDT Testing performed by [facility] Microbiology Laboratory ([phone]) Organism Antibiotic Method Susceptibility Escherichia coli Ampicillin INTERPRETATION Resistant Escherichia coli Cefazolin INTERPRETATION Susceptible Escherichia coli Nitrofurantoin INTERPRETATION Susceptible Escherichia coli Gentamicin INTERPRETATION Susceptible Escherichia coli Trimethoprim with Sulfamethoxazole IN TERPRETATION Resistant Escherichia coli Meropenem INTERPRETATION Susceptible Escherichia coli Cefepime INTERPRETATION Susceptible Escherichia coli Ciprofloxacin INTERPRETATION Susceptible Escherichia coli Ceftazidime INTERPRETATION Susceptible Escherichia coli Ceftriaxone INTERPRETATION Susceptible Escherichia coli Piperacillin/Tazobactam INTERPRETATIO N Susceptible Escherichia coli Cephalexin INTERPRETATION Susceptible Escherichia coli Cefuroxime-axetil INTERPRETATION Susceptible Escherichia coli Cefdinir INTERPRETATION Susceptible Jess Guadalupe MD LAB MICROBIOLOGY - GENERAL ORD ERABLES Final Result [facility] [place] [address] * (ABNORMAL) POCT urinalysis dipstick (02/12/2025 10:27 AM CDT) Color, Urine, POC Yellow Clarity, ur, POC Cloudy(A) Clear Glucose, ur, POC Negative Negative Ketones, ur, POC Negative Negative Blood, ur, POC 2+(A) Negative pH, ur, POC 6.0 5.0 - 8.0 Protein, ur, POC Trace(A) Negative Nitrite, ur, POC Positive(A) Negative Leukocytes, ur, POC 2+(A) Negative Lot Number x Urine 02/12/2025 10:2 7 AM CDT Jess Guadalupe MD POINT OF CARE TEST ORDERABLES Final Result * (ABNORMAL) Tacrolimus level trough (01/16/2025 8:47 AM CDT) SCRIBED Tacrolimus, trough 3.2(A) 5.0 - 20.0 NG/ML [facility] Blood 01/16/2025 8:47 AM CDT Denis Steiner MD LAB BLOOD ORDERABLES Edit ed Result - Final [facility] * (ABNORMAL) CBC with auto differential (01/16/2025 8:47 AM CDT) SCRIBED WBC 10.8 4.8 - 10.8 K/cumm [facility] Hemoglobin 15.9 14.0 - 18.0 g/dL [facility] Hematocrit 50.4 40.0 - 54.0 % [facility] Platelets 370 150 - 420 K/cumm [facility] RBC [facility] Comment:- SCRIBED Lymphocytes Abs 3.21 1.10 - 4.50 K/cumm [facility] Blood 01/16/2025 8:47 AM CDT us Historical Provider LAB BLOOD ORDERABLES Edit ed Result - Final Performing Organization Address City/State/[facility] Co de Phone Number [address] [phone] * (ABNORMAL) Renal function panel (01/16/2025 8:47 AM CDT) SCRIBED Sodium 145 137 - 145 mmol/L [facility] Potassium 4.7 3.4 - 5.0 mmol/L [facility] Chloride 107 98 - 107 mmol/L [facility] Carbon Dioxide 26 22 - 30 mmol/L [facility] Anion Gap 12 4 - 12 mmol/L [facility] Urea Nitrogen (BUN) 19 9 - 20 mg/dL [facility] Creatinine 1.63(A) 0.7 - 1.3 mg/dL [facility] Glucose 99 65 - 110 mg/dL [facility] Calcium 9.9 8.4 - 10.2 mg/dL [facility] Phosphorus 2.8 2.5 - 4.5 mg/dL [facility] SCRIBED Albumin 4.4 3.5 - 5.1 g/dL [facility] SCRIBED eGFR 44 >=60 mL/min/1.7 3 m2 [facility] Blood 01/16/2025 8:47 AM CDT us Historical Provider LAB BLOOD ORDERABLES Shandra l Result [facility] [address] [phone] * Surgical pathology (01/07/2025 2:50 PM CDT) Tissue (Polyp(s), colon/colorectal, esophageal, gastric) 01/07/2025 2:50 PM CDT Narrative PATHOLOGY [facility] - 01/09/2025 12:16 PM CDT EPIC results best viewed via link to PDF [facility] Department of Pathology [address] [place] [address] Note to Patients: This report may contain a detailed description of human tissue sent by a health care provider to the laboratory for pathologic evaluation. The content of this report is essential for diagnosis and may provide important critical findings. This information may be unfamiliar to patients to review without a medical professional present. It is advised that the patient review this report in the presence of a health care provider who can answer questions and explain the details. Final Report Patient Name: JESUS DIA Address: [address] [place] [id number] Gender: M : 1965 (Age: 59) Service: Gastro Location: [facility] Hospital #: [id number] Patient Type: [facility] Taken: 01/07/2025 Received: 01/08/2025 Accessioned: 01/08/2025 Reported: 01/09/2025 Physician(s):Wil Jiang MD Diagnosis: A. Transverse colon polyp, endoscopic biopsy- Tubular adenoma fragments Negative for high-grade dysplasia and carcinoma Heather Colmenares M.D. Report Electronically Reviewed and Signed Out By Heather Colmenares M.D. 01/09/2025 12:16:17 Specimen(s) Received: A: transverse colon polyp x1 Microscopic Description: Microscopic examination corroborates the diagnosis. Clinical History: History of colonic polyps [Z86.0100] Encounter for screening colonoscopy [Z12.11] Colon removal snare Gross Description: The specimen is submitted in a single formalin filled container labeled JESUS DIA and transverse colon polyp. It is 3 magana tissue fragments between 1 and 3 mm. All in one cassette. Bettina Stahl R.N., P.A./Heather Colmenares M.D. REPORT IMAGES AND SCANNED DOCUMENTS, IF INCLUDED, ONLY VIEWABLE IN PDF VERSION OF REPORT The performance characteristics of some immunohistochemical stains, fluorescence in-situ hybridization tests and immunophenotyping by flow cytometry cited in this report (if any) were determined by the Surgical Pathology Department at [facility] as part of an ongoing quality improvement consultant program and in compliance with federally mandated regulations drawn from the Clinical Laboratory Improvement Act of 1988 (CLIA '88). Some of these tests rely on the use of analyte specific reagents and are subject to specific labeling requirements by the US Food and Drug Administration. Such diagnostic tests may only be performed in a facility that is certified by the Department of Health and Human Services as a high complexity laboratory under CLIA '88. The FDA has determined that such clearance or approval is not necessary. This test is used for clinical purposes. It should not be regarded as investigational or for research. Nevertheless, federal rules concerning the medical use of analyte specific reagents require that the following disclaimer be attached to the report: This test was developed and its performance characteristics determined by the Surgical Pathology Department [facility]. It has not been cleared or approved by the U. S. Food and Drug Administration. Note for decalcified specimens: This assay has not been validated on decalcified tissues. Results should be interpreted with caution given the possibility of false negativity on decalcified specimens Wil Jiang MD LAB PATHOLOGY ORDERABLES Final R esult PATHOLOGY [facility] [address] [place] [address] * Colonoscopy (01/07/2025 12:09 PM CDT) Anatomical Region Laterality Modality Other Narrative Procedure Note Wil Jiang MD - 01/07/2025 12:09 PM CDT [facility] Patient Name: Jesus Dia Procedure Date: 01/07/2025 12:09 PM Date of : 1965 Admit Type: Outpatient Age: 59 Gender: Male Attending MD: Wil Jiang M.D., Room: [facility] ENDOSCOPY ROOM 2 Note Status: Finalized Patient Profile: This is a 59 year old male history of HLD, kidney transplant here for colon cancer screening. Remote colonoscopy per patient. No record for review. No family hx of colon cancer. Procedure: Colonoscopy Indications: Screening for colorectal malignant neoplasm, Last colonoscopy: 2009 Referring MD: Redd Roberts M.D. Providers: Wil Jiang M.D. Impression: - Preparation of the colon was fair. - The examined portion of the ileum was normal. - Patent ileo-colonic anastomosis, characterized by healthy appearing mucosa. - One 5 mm polyp in the transverse colon, removedwith a cold snare. Resected and retrieved. - Tortuous colon. - External and internal hemorrhoids. Recommendation: - Patient has a contact number available for emergencies. The signs and symptoms of potential delayed complications were discussed with thepatient. Return to normal activities tomorrow. Written discharge instructions were provided to thepatient. - Discharge patient to home (with escort). - Resume previous diet. - Continue present medications. - Await pathology results. - Repeat colonoscopy in 2 years with 2 day prep for surveillance based on pathology results. - Return to referring provider as previouslyscheduled. Medicines: Monitored Anesthesia Care Complications: No immediate complications. Estimated Blood Loss: Estimated blood loss was minimal. Procedure: Pre-Anesthesia Assessment: - Prior to the procedure, a History and Physicalwas performed, and patient medications and allergieswere reviewed. The patient is competent. The risks and benefits of the procedure and the sedation optionsand risks were discussed with the patient. Allquestions were answered and informed consent was obtained. Patient identification and proposed procedure were verified by the physician, the alumina refinery operator and the medical equipment technician in the endoscopy suite. Mental Status Examination: normal. Prophylactic Antibiotics: The patient does not require prophylactic antibiotics. Prior Anticoagulants: The patient has taken no anticoagulant or antiplatelet agents. Afterreviewing the risks and benefits, the patient was deemed in satisfactory condition to undergo the procedure.The anesthesia plan was to use monitored anesthesiacare (MAC). Immediately prior to administration of medications, the patient was re-assessed foradequacy to receive sedatives. The heart rate, respiratory rate, oxygen saturations, blood pressure, adequacyof pulmonary ventilation, and response to care were monitored throughout the procedure. The physical status of the patient was re-assessed after the procedure. The benefits, risks and alternatives of theprocedure and sedation were discussed and informed consentwas obtained. All questions were answered. Please referto the signed informed consent document in the medical record. The bowel preparation used was Miralax via split dose instruction. The bowel preparation usedwas bisacodyl tablets via split dose instruction. The scope was passed under direct vision. The Pediatric Colonoscope PCF-[id number] was introducedthrough the anus and advanced to the the ileocolonic anastomosis. The colonoscopy was somewhat difficult due to a tortuous colon. The patient tolerated the procedure well. The quality of the bowelpreparation was fair. Bowel prep was administered using a split dose. Findings: The perianal and digital rectal examinations were normal. The terminal ileum appeared normal. There was evidence of a prior ileo-colonic anastomosis in theascending colon. This was patent and was characterized by healthy appearing mucosa. The anastomosis was traversed. A 5 mm polyp was found in the transverse colon. The polyp wassessile. The polyp was removed with a cold snare. Resection and retrieval were complete. The colon (entire examined portion) was tortuous. External and internal hemorrhoids were found during retroflexion. Wil Jiang M.D. 01/07/2025 3:15:33 PM Number of Addenda: 0 Note Initiated On: 01/07/2025 12:09 PM Procedure Code(s): --- Professional --- 29408, Colonoscopy, flexible; with removal of tumor(s), polyp(s), or other lesion(s) by snare technique --- Technical --- 03906, Colonoscopy, flexible; with removal of tumor(s), polyp(s), or other lesion(s) by snare technique Diagnosis Code(s): --- Professional --- Z12.11, Encounter for screening for malignant neoplasm of colon K64.8, Other hemorrhoids Z98.0, Intestinal bypass and anastomosis status D12.3, Benign neoplasm of transverse colon (hepatic flexure orsplenic flexure) Q43.8, Other specified congenital malformations of intestine --- Technical --- Z12.11, Encounter for screening for malignant neoplasm of colon K64.8, Other hemorrhoids Z98.0, Intestinal bypass and anastomosis status D12.3, Benign neoplasm of transverse colon (hepatic flexure orsplenic flexure) Q43.8, Other specified congenital malformations of intestine CPT copyright 2022 [employer]. All rights reserved. The codes documented in this report are preliminary and upon medical equipment technician reviewmay be revised to meet current compliance requirements. Recognized by the [employer] for promoting quality in endoscopy Wil Jiang MD ENDOSCOPY PROCEDURES Final Resul t * Surgical pathology (12/23/2024 12:00 AM CDT) Tissue (Skin, shave biopsy) 12/23/2024 12/24/2024 4:[address] [facility] - 12/26/2024 12:33 PM CDT EPIC results best viewed via link to PDF [facility] [address], [address], [place] [address] [email or web address] Note to Patients: This report may contain a detailed description of human tissue sent by a health care provider to the laboratory for pathologic evaluation. The content of this report is essential for diagnosis and may provide important critical findings. This information may be unfamiliar to patients to review without a medical professional present. It is advised that the patient review this report in the presence of a health care provider who can answer questions and explain the details. FINAL REPORT Patient Information: PATIENT NAME: JESUS DIA SEX: M : 1965 (Age: 59) Specimen Information: COLLECTED: 12/23/2024 RECEIVED: 12/24/2024 REPORTED: 12/26/2024 Submitting Physician Information: Kaya Adorno MD, PhD DERMATOLOGY, [address], [address] [place] [address], DERMATOPATHOLOGY REPORT RESULTS DIAGNOSIS: A. SKIN, RIGHT JAW, SHAVE BIOPSY: SQUAMOUS CELL CARCINOMA IN SITU B. SKIN, LEFT SHOULDER, SHAVE BIOPSY: BASAL CELL CARCINOMA exr/lac By this signature, I attest that the above diagnosis is based upon my personal examination of the slides(and/or other material indicated in the diagnosis). Cristiane Lemus M.D. Report Electronically Reviewed and Signed Out By Cristiane Lemus M.D. 12/26/2024 12:33:47 CLINICAL INFORMATION A. R/O SCC B. R/O BCC SPECIMEN DATA MICROSCOPIC DESCRIPTION: A. Atypical keratinocytes are present throughout the entire thickness of the epidermis. Because sebaceous carcinoma was also in the differential diagnosis, immmunostains for p63, CK5/6 and adipophilin were performed. Lesional cells stain positive for p63 and CK5/6 and negative for adipophilin, confirming the diagnosis. (D04.9) B. Irregular aggregates of atypical basal epithelial cells with palisading of their peripheral nuclei are present within the dermis. (C44.91) GROSS DESCRIPTION: A. Received in a formalin-containing bottle is a superficial fragment of pale magana and scaly skin measuring 0.9 by 0.9 by 0.2 cm. The surgical margin is inked blue. The specimen is sectioned into 4 pieces and submitted entirely in a single cassette. Due to shrinkage, measurements may be different than those at time of procedure. B. Received in a formalin-containing bottle is a superficial fragment of pale magana, glistening and rubbery skin measuring 1.3 by 1.3 by 0.3 cm. The surgical margin is inked blue. The specimen is sectioned into 5 pieces and submitted entirely in a single cassette. Due to shrinkage, measurements may be different than those at time of procedure. sxt/dxv ICD-9 ZSD.1474 ZSD.176 Clerical Data A; 11317, 75511-XQ, 55348 IHC, 25661 IHC B; 99362 The characteristics of special, immunohistochemical, and immunofluorescence stains and in-situ hybridization tests performed by the [facility] were deemed acceptable in ongoing quality improvement consultant measures and in compliance with regulations drawn from the Clinical Laboratory Improvement Act ta4070 (CLIA '88). Control reactions for all stains performed were deemed adequate and appropriate by a pathologist prior to evaluation of patient tissue. Some diagnoses were rendered with the assistance of laboratory-developed tests utilizing analyte-specific reagents; the performance characteristic of these tests were determined by [facility] and are not cleared or approved by the [place] Food an Drug administration. Laboratory developed test may only be performed in a facility that is certified by the [facility] as a high-complexity laboratory under CLIA '88. These tests are used for clinical purposes and are not investigational. Kaya Adorno MD PhD LAB PATHOLOGY ORDERABL ES Final Result [facility] [address] [place] [address] * PSA, total and free (08/14/2024 8:45 AM CDT) PSA-free <0.1 ng/mL [place] ref Lab PSA-Total 0.13 <=3.5 ng/mL [facility] PSA-Free/Total Ratio See Footnote [facility] Comment: Ratio was not calculated because free [...] absence of malignant disease. Test Performed by: [place] [address] Res Counselor: Fay Reece Ph.D.; CLIA# [id number] Blood Venous blood specimen / Unknown 08/14/2024 8:45 AM CDT 08/14/2024 11:37 AM CDT us Tremaine Beltran MD LAB BLOOD ORDERABLES Final R esult [facility] Department of [place] [address] [place] ref Lab from Last 3 Months or Most Recently Relevant to Health Maintenance Insurance MEDICARE MEDICARE [facility] MEDICARE Advance Directives For more information, please contact: [phone] * Full Code (Latest Code Status on File) Date Activated Date Inactivated Comments 01/07/2025 12:20 PM 01/07/2025 7:40 PM * Full Code Date Activated Date Inactivated Comments 01/07/2025 12:20 PM 01/07/2025 12:20 PM Care Teams Crude Oil Driver Relationship Specialty Start Date End Date Redd Roberts MD [address] [place] [address] PCP - General 08/22/16 Angelica Sheehan, RANDOLPH [address] [address] Animal Handler 10/09/17
--- OUTSIDE RECORDS SUMMARY | 2025-02-26 13:37 | XMS_ITS | Encounter Summary ---
Author Organization [facility] Address [address] [place] [address] Care Team Providers Care Facilities Maintenance Engineer Name Role Phone Redd Roberts MD Primary Care Provider +- [phone] Angelica Sheehan RN Unavailable [phone] Reason for Referral * Consultation (Urgent) - Authorized Specialty Diagnoses / Procedures Referred By Contac t Referred To Contact [facility] Diagnoses Osteoporosis, unspecified osteoporosis type, unspecified pathological fracture presence Tremaine Beltran MD [address] [facility] [address] [place] [address] Phone: tel: fax: [facility] (All Locations) Referral ID Status Reason Start Date Expiration Date Visits Requested Visits Authorized [id number] Authorized Specialty Services Required 03/28/2026 1 1 Question Answer Please select the performing region: [facility] (All Locations) [167] # of visits: 1 Encounter Details Date Type Department Care Team (Late st Contact Info) Description 02/26/2025 Telephone [facility] Transplant Kidney [address] [facility] [address] Mailstop [phone] [place] [address] Angelica Sheehan RN [address] [facility] LOC [address] [place] [address] Social History Tobacco Use Types Packs/Day Years [...] file Legal Sex Male 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 I told her that I had just called [facility] toschedule his referral. When I called [facility] I spoke to Shaye. She stated that they would call the pt or the pt could call them; that they have several new referrals at this time. Mother was driving at the time so couldn't take the [employer] phone number. I called mother back so I could leave number on vm; [phone]. * Telephone Encounter - Angelica Sheehan RN - 02/26/2025 10:[address] Beltran: Please refer Chris for the osteoporosis clinic. Please schedule pt to be seen in the [facility]. Thank you. documented in this encounter Plan of Treatment Scheduled Referrals Name Type Priority Associated Diagnoses Orde r Schedule Ambulatory referral to [facility] Outpatient Referral Urgent Osteoporosis, unspecified osteoporosis type, unspecified pathological fracture presence Expected: 03/12/2025 (Approximate), Expires: 02/26/2026 documented as of this encounter Visit Diagnoses Diagnosis Osteoporosis, unspecified osteoporosis type, unspecified pathological fracture presence- Primary documented in this encounter Care Teams Facilities Maintenance Engineer Relationship Specialty Start Date End Date Redd Roberts MD [address] [place] [address] PCP - General 08/22/16 Angelica Sheehan, RN [address] [address] Oyster Cultivator 10/09/17 documented as of this encounter
--- OUTSIDE RECORDS SUMMARY | 2025-02-26 13:37 | XMS_ITS | Clinical Summary ---
Author Organization [facility] Address [address] [place] [address] Phone Care Team Providers Care Plastics Technician Name Role Phone Unavailable Primary Care Provider [...] Immunization (1 of 2) 1984 Cologuard 2010 Immunochemical Fecal Occult Blood 2010 PSA Discussion 2020 Influenza Immunization (#1) 2025 12/0 05/2021, 03/17/2021, 05/21/2018, Additional history exists SARS-COV-2 Immunization (2024- season) 2025 07/05/2021, 12/22/2020, 07/27/2020, Additional history exists Colonoscopy 01/07/2035 01/07/2025 Colorectal Cancer Screening 01/07/2035 Respiratory Syncytial Virus (RSV) Immunization (Adult) (1 [...] on patient's age to complete this topic Procedures Procedure Name Priority Date/Time Associated Diagnosis Comments LAB - MISCELLANEOUS 01/16/2025 1 2:00 AM CDT COMPLETE BLOOD COUNT (CBC) WITH DIFF 01/16/2025 12:00 AM CDT RENAL FUNCTION PANEL (RFP) 01/16/2025 12:00 AM CDT HM COLONOSCOPY 01/07/2025 12:00 AM CDT from Last 3 Months Results * LAB - MISCELLANEOUS (01/16/2025 12:00 AM CDT) 01/16/2025 us Provider Scan CHEMISTRY ORDERABLES Final Resul t Performing Organization Address [facility] Co de Phone Number SCAN * RENAL FUNCTION PANEL (RFP) (01/16/2025 12:00 AM CDT) 01/16/2025 us Provider Scan CHEMISTRY ORDERABLES Final Resul t SCAN * COMPLETE BLOOD COUNT (CBC) WITH DIFF (01/16/2025 12:00 AM CDT) 01/16/2025 us Provider Scan HEMATOLOGY ORDERABLES Final Resu lt Performing Organization Address City/[facility]/ZIP Co de Phone Number SCAN * HM COLONOSCOPY (01/07/2025 12:00 AM CDT) 01/07/2025 us Redd Roberts MD PROCEDURE/MINOR SURGICAL OR DERABLES Final Result SCAN from Last 3 Months
--- OUTSIDE RECORDS SUMMARY | 2025-02-26 13:37 | XMS_ITS | Encounter Summary ---
Author Organization [facility] Address [address] [place] [address] Phone Care Team Providers Care Cable Repairer Name Role Phone Redd Roberts MD Primary Care Provider +- [phone] Angelica Sheehan RN Unavailable [phone] Encounter Details Date Type Department Care Team (Late st Contact Info) Description 02/16/2025 Results Follow-Up [facility] ([facility]) - [facility] Urology [address] [facility] 11th [place] [address] [place] [address] Jess Guadalupe MD [address] [facility] [address] [place] [address] Urine culture Urine, in and out catheter Social History Tobacco Use Types Packs/Day Years [...] on file Legal Sex Male 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
--- OUTSIDE RECORDS SUMMARY | 2025-02-26 13:37 | XMS_ITS | Encounter Summary ---
Author Organization [facility] Address [address] [place] [address] Phone Care Team Providers Care Retail Aide Name Role Phone Redd Roberts MD Primary Care Provider +- [phone] Angelica Sheehan RN Unavailable [phone] Encounter Details Date Type Department Care Team (Late st Contact Info) Description 12/26/2024 Results Follow-Up 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 Six month exam scheduled for 06/23/25. Please contact Jacinda Dia to schedule an appointment with Dr. Joe for the MOHS procedures. Thank you. * Result Encounter Note - Kaya Adorno MD PhD - 12/26/2024 12:41 PM CDT Recommend mohs surgery for both spots given history of renal transplant and size. RTC with me in 6 months documented in this encounter Plan of Treatment Not on file documented as of this encounter Visit Diagnoses Not on filedocumented in this encounter Care Teams Retail Aide Relationship Specialty Start Date End Date Redd Roberts MD [address] [place] [address] PCP - General 08/22/16 Angelica Sheehan RN [address] [address] Windows Vmware Administrator 10/09/17 documented as of this encounter
--- OUTSIDE RECORDS SUMMARY | 2025-02-26 13:37 | XMS_ITS | Encounter Summary ---
Author Organization [facility] Address [address] [place] [address] Phone Care Team Providers Care Cotton Buyer Name Role Phone Redd Roberts MD Primary Care Provider + [phone] Angelica Sheehan RN Unavailable [phone] Encounter Details Date Type Department Care Team (Late st Contact Info) Description 12/26/2024 Documentation [facility] Dermatology [address] [place] [address] Kaya Adorno MD PhD [address] [address] Social History Tobacco Use Types Packs/Day Years Used Date Smoking Tobacco: Never Smokeless Tobacco: Never Alcohol Use Standard Drinks/Week Comments No 0 (1 standard drink = 0.6 oz pur e alcohol) Sex and Gender Information Value Date Recorded Sex Assigned at Not on file Legal 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
--- OUTSIDE RECORDS SUMMARY | 2025-02-26 13:39 | XMS_ITS ---
Author Organization [facility] Address [address] [place] [address] Care Team Providers Care Child Care Centre Manager Name Role Phone Redd Roberts MD Primary Care Provider +- [phone] Angelica Sheehan RN Unavailable [phone] Transplant Episode Kidney Recipient [facility] ([place], [place]) [facility] Organ Received: Right Kidney Transplanted on 12/19/1993 Marked as Active Follow-up on 12/19/1993 Kidney CoordinatorAngelica Sheehan RN Fax: N/A Email: N/A [place] Organ Diagnosis Organ Primary Contributory Kidney Acquired [...] Fax Email Angelica Sheehan RN Kidney Coordinator [phone] N/A N/A Alexandra Cole, RN Secondary Coordinator Secondary Kidney Coordinator N/A N/A N/A Nesha Sapp Primary Ring Cutter Lathe Operator N/A N/A N/A Angelica Sheehan RN [place] [phone] N/A N/A Zaira Cancino Secondary Ring Cutter Lathe Operator N/A N/A N/A Events Post-Transplant Pre-Transplant Transplanted: 12/19/1993 Referred: 05/23/1990 Discharged: 12/31/1993 Evaluation began: 05/17/1991 Center waitlisted: 3 Appointments (01/27/2025 - 03/29/2025) When With Visit Type Description 02/26/2025 Transplant Return Encounter for a ftercare following kidney transplant (Primary Dx)
--- OUTSIDE RECORDS SUMMARY | 2025-02-26 13:39 | XMS_ITS | Patient Health Record ---
Author Organization [facility] Address [address] [facility] [address] [place] [address] Care Team Providers Care Automation Qtp Tester Name Role Phone Janusz Clark Unavailable [phone] Allergies No Known Allergies Reason For Referral No Information Medications Medication SIG (Take, Route, Frequency, Duration) Notes Start Date End Date Status Tacrolimus 1 MG Capsule Oral; Duration: 30 Days Active predniSONE 5 MG Tablet Oral; Duration: 90 Days Active Folic Acid 1 MG Tablet TAKE 1 TABLET BY MOUTH EVERY DAY IN THE EVENING Oral; Duration: 90 Days Active Atorvastatin Calcium 20 MG Tablet Oral; Duration: 90 Days Acti ve OLANZapine 20 MG Tablet 1 tablet Oral On ce a day; Duration: 90 days Active Social History Tobacco Use: Social History Observation Description Date Details (start date - stop date) Never Smoker NA - NA Sex Assigned At : Social History Observation Description Sex Assigned At Male Social History Drug/Alcohol: Social Info Question Answer Notes AUDIT-C (Standard) Did you have a drink containing alcohol in the past year? No Points 0 Interpretation Negative Tobacco Use: Social Info Question Answer Notes Tobacco Control (Standard) Tobacco use: Nonsmoker Additional Details Category Social Info Options Details Migrated Social History Migrated Social History Alcohol Intake: None 07/23/2023,Tobacco Years: Never smoker 07/23/2023 Problems Problem Type SNOMED Code ICD Code Onset Dates Problem Status W/U Status Risk Notes Problem Paranoid schizophrenia (76350488) Paranoid schizophrenia (F20.0) Active confirmed Problem History of renal transplant (852953727) Kidney transplant recipient (Z94.0) Active confirmed Vital Signs Heart Rate 92 /min 09/15/2024 Height-cm 180.34 cm 09/15/2024 Blood pressure diastolic 79 mm Hg 09/15/2024 Weight-kg 90.27 kg 09/15/2024 Height 71.00 in 09/15/2024 Blood pressure systolic 120 mm Hg 09/15/2024 Weight 199 lbs 09/15/2024 BMI 27.75 kg/m2 09/15/2024 Encounters Encounter Location Date Provider Diagnosis [facility] [employer] [facility] [address] [place] [address] 03/17/2024 Janusz Eduardo Paranoid schizophren ia F20.0 and Kidney transplant recipient Z94.0 [facility] [employer] [facility] [address] [place] [address] 09/15/2024 Janusz Eduardo Paranoid schizophren ia F20.0 ; Kidney transplant [...] supplements or increase dietary intake of vitamin K13-eama foods. Follow-up with primary care physician for [...] - Plan: Medications will be sent to [facility] in [place]. No need to send a note to [...] supplements or increase dietary intake of vitamin N68-jmmp foods. Follow-up with primary care physician for [...] - Plan: Medications will be sent to [facility] in [place]. No need to send a note to the patient's medical doctor at this time. 09/15/2024 Encounter for screening for cardiovascular disorders (ICD-10 - Z13.6) 09/15/2024 Other Jesus Dia, male patient with history of kidney transplant [...] ensure accuracy, there may be errors, including screener perfumer inaccuracies and misspellings of medication names. This document should not be considered a verbatim record, and any discrepancies should be verified with the provider. Plan Of Treatment Pending Test Test Name Order Date Vitamin B12 and Folate 10/29/2023 Hemoglobin A1c 10/29/2023 TSH 10/29/2023 Vitamin D, 25-Hydroxy 10/29/2023 CBC 10/29/2023 COMPREHENSIVE METABOLIC PANEL (30288) Next Appt Details Provider Name:Janusz Clark , 03/16/2025 08:30:00 AM, [address], [facility] [address], [place], [address], Insurance Providers Payer Name Payer Address Payer Phone Subscriber Number Group Number Insured Name Patient Relationship to Insured Coverage Start Date Coverage End Date Medicare-I l Medicare [address] [place] [address] [id number] JESUS DIA Self - patient is the insured Medical (General) History Medical History History ICD Code Problems: History of renal transplant Paranoid schizophrenia , Imported from [place]: Th e patient has had a series of medical encounters from November 2023 to August 2024. The patient underwent a kidney transplant, with aftercare provided by various healthcare providers, including Dr. Redd Roberts at [facility] and Dr[facility] Wild[facility] Cam[facility] at [facility] [...] has age-related osteoporosis. Imported from [facility]: Tim blackwood Name: Lipid panel Facility Name: [facility] Test Result Date: 2024-02-19 08:42:48 Results: Cholesterol, Total 137 mg/dl, HDL 45 mg/dl, LDL 75 mg/dl, Triglycerides 78 mg/dl Surgical History Surgery Date(Month/Year) Other 12/06/2003
--- OUTSIDE RECORDS SUMMARY | 2025-02-26 13:39 | XMS_ITS | Clinical Summary ---
Author Organization [facility] Address [address] [place] [id number] Care Team Providers Care Poultry Offal Worker Name Role Phone Unavailable Primary Care Provider [...] COVID-19 Vaccine ( - 2023-2 5 season) 2025 Influenza Adult (#1) 2025 Hepatitis A Vaccines Aged Out No long er eligible based on patient's age to complete this topic Meningococcal B Vaccine Aged Out No l onger eligible based on patient's age to complete this topic Meningococcal Vaccine Aged Out No melia dory eligible based on patient's age to complete this topic RSV Immunizations Under 20 Months Aged Out No longer eligible based on patient's age to complete this topic
== END 2025-02-26 12:44 | disposition home or self-care (01) ==
DX: N31.9 Neuromuscular dysfunction of bladder, unspecified (principal); N30.00 Acute cystitis without hematuria
CPT/HCPCS: 87086; 87186